=== PATIENT | male | born 1965 | race Caucasian/White ===

== ENCOUNTER 2018-04-24 13:16 | Inpatient (IN) | payer OTHER ==
[2018-04-24 14:52] LABS: Basophils % (Auto) 0.8 % (0.0-1.8); Eosinophils # (Auto) 0.1 K/mm3 (0.0-0.4); Eosinophils % (Auto) 1.3 % (0.0-4.3); Hematocrit 51.6 % (35.5-45.6); Hemoglobin 16.7 gm/dl (11.8-15.2); Lymphocytes # (Auto) 1.7 K/mm3 (1.2-5.4); Lymphocytes % (Auto) 27.4 % (13.4-35.0); Mean Corpuscular HGB Conc 32 % (32-34); Mean Corpuscular Hemoglobin 31 pg (28-32); Mean Corpuscular Volume 94 fl (84-94); Monocytes # (Auto) 0.6 K/mm3 (0.0-0.8); Monocytes % (Auto) 10.3 % (0.0-7.3); Platelet Count 208 K/mm3 (140-440); Red Blood Count 5.48 M/mm3 (3.65-5.03); Red Cell Distribution Width 14.8 % (13.2-15.2)
[2018-04-24 15:06] LABS: Bilirubin,Urine NEG (Negative); Blood,Urine NEG (Negative); Color,Urine Amber (Yellow); Hyaline Casts,Urine 1 /LPF; Mucus,Urine FEW /HPF; RBC,Urine < 1.0 /HPF (0.0-6.0)
[2018-04-24 15:10] LABS: Albumin 3.4 g/dL (3.9-5); Bilirubin,Direct 0.4 mg/dL (0-0.2)
[2018-04-24 15:12] LABS: Alanine Aminotransferase 24 units/L (7-56); Albumin 3.4 g/dL (3.9-5); BUN/Creatinine Ratio 11; Blood Urea Nitrogen 12 mg/dL (9-20); Hemolysis Index 4
[2018-04-24] MEDS ORDERED: LASIX IV ONE (15:49)
--- NOTE | 2018-04-24 16:01 | Emergency Department Report ---
ED General Adult HPI - General Chief complaint: Medical Clearance Stated complaint: EYES/FEET/STOMACH SWELLING Time Seen by Provider: 04/24/18 15:41 Source: patient Mode of arrival: Ambulatory Limitations: No Limitations - History of Present Illness Initial comments: Patient is a 53-year-old male who is presenting to the emergency department with leg and abdominal swelling or shortness of breath. Patient was seen at primary care physician's office and sent here today secondary to these complaints. Patient denies any chest pain abdominal pain nausea vomiting diarrhea at this time. Patient states that shortness of breath is worse with exertion. - Related Data Allergies Allergy/AdvReac Type Severity Reaction Status Date / Time No Known Allergies Allergy Unverified 04/24/18 14:13 ED Review of Systems ROS: Stated complaint: EYES/FEET/STOMACH SWELLING Other details as noted in HPI Comment: All other systems reviewed and negative ED Past Medical Hx - Social History Smoking Status: Never Smoker ED Physical Exam - General Limitations: No Limitations General appearance: alert, in no apparent distress - Head Head exam: Present: atraumatic, normocephalic - Eye Eye exam: Present: normal appearance - ENT ENT exam: Present: mucous membranes moist - Neck Neck exam: Present: normal inspection - Respiratory Respiratory exam: Present: rales. Absent: respiratory distress, wheezes, rhonchi, stridor - Cardiovascular Cardiovascular Exam: Present: regular rate, normal rhythm. Absent: systolic murmur, diastolic murmur, rubs, gallop - GI/Abdominal GI/Abdominal exam: Present: soft, distended (abdomen is firm and edematous), normal bowel sounds. Absent: tenderness, guarding, rebound - Rectal Rectal exam: Present: deferred - Extremities Exam Extremities exam: Present: normal inspection, pedal edema (patient has bilateral lower extremity edema is 2+ pitting) - Back Exam Back exam: Present: normal inspection - Neurological Exam Neurological exam: Present: alert, oriented X3 - Psychiatric Psychiatric exam: Present: normal affect, normal mood - Skin Skin exam: Present: warm, dry, intact, normal color. Absent: rash ED Course Vital Signs 04/24/18 14:07 Temperature 97.8 F Pulse Rate 71 Respiratory 16 Rate Blood Pressure 131/76 O2 Sat by Pulse 95 Oximetry ED Medical Decision Making - Lab Data Result diagrams: 04/24/18 14:38 06/30/18 14:38 Lab Results 04/24/18 04/24/18 04/24/18 Range/Units 13:05 14:38 14:38 WBC 6.0 (4.5-11.0) K/mm3 RBC 5.48 H (3.65-5.03) M/mm3 Hgb 16.7 H (11.8-15.2) gm/dl Hct 51.6 H (35.5-45.6) % MCV 94 (84-94) fl MCH 31 (28-32) pg MCHC 32 (32-34) % RDW 14.8 (13.2-15.2) % Plt Count 208 (140-440) K/mm3 Lymph % (Auto) 27.4 (13.4-35.0) % [place] % (Auto) 10.3 H (0.0-7.3) % Eos % (Auto) 1.3 (0.0-4.3) % Baso % (Auto) 0.8 (0.0-1.8) % Lymph # 1.7 (1.2-5.4) K/mm3 [place] # 0.6 (0.0-0.8) K/mm3 Eos # 0.1 (0.0-0.4) K/mm3 Baso # 0.0 (0.0-0.1) K/mm3 Seg Neutrophils % 60.2 (40.0-70.0) % Seg Neutrophils # 3.6 (1.8-7.7) K/mm3 Sodium 142 (137-145) mmol/L Potassium 4.2 (3.6-5.0) mmol/L Chloride 101.1 (98-107) mmol/L Carbon Dioxide 31 H (22-30) mmol/L Anion Gap 14 mmol/L BUN 12 (9-20) mg/dL Creatinine 1.1 (0.8-1.5) mg/dL Estimated GFR > 60 ml/min BUN/Creatinine Ratio 11 % Glucose 111 H (75-100) mg/dL Calcium 9.0 (8.4-10.2) mg/dL Total Bilirubin 1.10 (0.1-1.2) mg/dL Direct Bilirubin (0-0.2) mg/dL Indirect Bilirubin mg/dL AST 31 (5-40) units/L ALT 24 (7-56) units/L Alkaline Phosphatase 81 (35-129) units/L Total Protein 7.1 (6.3-8.2) g/dL Albumin 3.4 L (3.9-5) g/dL Albumin/Globulin Ratio 0.9 % Lipase (13-60) units/L Urine Color [place] (Yellow) Urine Turbidity Clear (Clear) Urine pH 5.0 (5.0-7.0) Ur Specific [place] 1.019 (1.003-1.030) Urine Protein 100 mg/dl (Negative) mg/dL Urine Glucose (UA) Neg (Negative) mg/dL Urine Ketones Neg (Negative) mg/dL Urine Blood Neg (Negative) Urine Nitrite Neg (Negative) Urine Bilirubin Neg (Negative) Urine Urobilinogen 4.0 (<2.0) mg/dL Ur Leukocyte Esterase Neg (Negative) Urine WBC (Auto) 2.0 (0.0-6.0) /HPF Urine RBC (Auto) < 1.0 (0.0-6.0) /HPF Hyaline Casts 1 /LPF Urine Mucus Few /HPF 04/24/18 Range/Units 14:38 WBC (4.5-11.0) K/mm3 RBC (3.65-5.03) M/mm3 Hgb (11.8-15.2) gm/dl Hct (35.5-45.6) % MCV (84-94) fl MCH (28-32) pg MCHC (32-34) % RDW (13.2-15.2) % Plt Count (140-440) K/mm3 Lymph % (Auto) (13.4-35.0) % [place] % (Auto) (0.0-7.3) % Eos % (Auto) (0.0-4.3) % Baso % (Auto) (0.0-1.8) % Lymph # (1.2-5.4) K/mm3 [place] # (0.0-0.8) K/mm3 Eos # (0.0-0.4) K/mm3 Baso # (0.0-0.1) K/mm3 Seg Neutrophils % (40.0-70.0) % Seg Neutrophils # (1.8-7.7) K/mm3 Sodium (137-145) mmol/L Potassium (3.6-5.0) mmol/L Chloride (98-107) mmol/L Carbon Dioxide (22-30) mmol/L Anion Gap mmol/L BUN (9-20) mg/dL Creatinine (0.8-1.5) mg/dL Estimated GFR ml/min BUN/Creatinine Ratio % Glucose (75-100) mg/dL Calcium (8.4-10.2) mg/dL Total Bilirubin 1.00 (0.1-1.2) mg/dL Direct Bilirubin 0.4 H (0-0.2) mg/dL Indirect Bilirubin 0.6 mg/dL AST 27 (5-40) units/L ALT 26 (7-56) units/L Alkaline Phosphatase 80 (35-129) units/L Total Protein 6.8 (6.3-8.2) g/dL Albumin 3.4 L (3.9-5) g/dL Albumin/Globulin Ratio 1.0 % Lipase 44 (13-60) units/L Urine Color (Yellow) Urine Turbidity (Clear) Urine pH (5.0-7.0) Ur Specific [place] (1.003-1.030) Urine Protein (Negative) mg/dL Urine Glucose (UA) (Negative) mg/dL Urine Ketones (Negative) mg/dL Urine Blood (Negative) Urine Nitrite (Negative) Urine Bilirubin (Negative) Urine Urobilinogen (<2.0) mg/dL Ur Leukocyte Esterase (Negative) Urine WBC (Auto) (0.0-6.0) /HPF Urine RBC (Auto) (0.0-6.0) /HPF Hyaline Casts /LPF Urine Mucus /HPF - Medical Decision Making Patient is a 53-year-old male who is complaining of shortness of breath leg swelling abdominal distention. Patient has a large amount of protein his urine suggestive of a nephrotic syndrome. Nephrology has been counseled and patient will be admitted to the hospitalist service under Dr. March. Critical Care Time: Yes Critical care time in (mins) excluding proc time.: 30 Critical care attestation.: If time is entered above; I have spent that time in minutes in the direct care of this critically ill patient, excluding procedure time. ED Disposition Clinical Impression: Anasarca, Nephrotic syndrome, Pulmonary edema Disposition: OP ADMIT IP TO THIS HOSP Is pt being admited?: Yes Does the pt Need Aspirin: No Condition: Stable Instructions: Pulmonary Edema (ED) Referrals: PRIMARY CARE, [Primary Care Provider] - 3-5 Days
[2018-04-24 16:52] LABS: INR 1.07 (0.87-1.13)
[2018-04-24 16:53] LABS: Partial Thromboplastin Time 29.8 Sec. (24.2-36.6)
[2018-04-24] MEDS ORDERED: ZOFRAN IV PRN (17:23)
[2018-04-24] MEDS ORDERED: SODIUM CHLORIDE FLUSH SYRINGE 10 ML IV PRN (17:23)
--- NOTE | 2018-04-24 17:23 | History and Physical Report ---
History of Present Illness Chief complaint: I'm swollen History of present illness: 53 YO Male with Obesity presents to ED for evaluation. Pt states that he has experienced worsening swelling to his legs, face, trunk, and abdomen over the past 3 weeks, with worsening symptoms over the past 1 week. Pt acknowledges nocturia, as well as foamy urine. Pt denies fever, chills, CP, Palpitations, NVD , Syncope, BRBPR, skin rash, productive cough, or recent ill contacts. Pt seen and evaluated in ED and found to have evidence of Nephrotic Syndrome, as well as Diastolic CHF. Pt admitted to medical floor. Nephrology consulted in ED Past History Past Medical History: other (Obesity) Past Surgical History: No surgical history, Other (reviewed) Social history: , lives with family. denies: smoking, alcohol abuse, prescription drug abuse Family history: no significant family history (reviewed) Medications and Allergies Allergies Allergy/AdvReac Type Severity Reaction Status Date / Time No Known Allergies Allergy Unverified 04/24/18 14:13 Review of Systems Constitutional: no weight loss, no weight gain, no fever, no chills Ears, nose, mouth and throat: no ear pain, no ear discharge, no tinnitis, no decreased hearing, no nose pain, no nasal congestion Cardiovascular: edema, shortness of breath, no chest pain, no orthopnea, no palpitations, no rapid/irregular heart beat Respiratory: no cough, no cough with sputum, no excessive sputum, no hemoptysis Gastrointestinal: no nausea, no vomiting, no diarrhea, no constipation, no change in bowel habits Genitourinary Male: nocturia, no hematuria, no flank pain, no discharge, no urinary frequency, no urinary hesitancy Rectal: no pain, no incontinence, no bleeding Musculoskeletal: no neck stiffness, no neck pain, no shooting arm pain, no arm numbness/tingling, no low back pain, no shooting leg pain, no leg numbness/ tingling Integumentary: no rash, no pruritis, no redness, no sores, no wounds, no jaundice Neurological: no head injury, no transient paralysis, no paralysis, no weakness , no parathesias, no numbness, no tingling, no seizures, no syncope Psychiatric: no anxiety, no memory loss, no change in sleep habits, no sleep disturbances, no insomnia, no hypersomnia, no change in appetite Endocrine: no cold intolerance, no heat intolerance, no polyphagia, no excessive thirst, no polyuria, no nocturia, no excessive sweating Hematologic/Lymphatic: no easy bruising, no easy bleeding, no lymphadenopathy, no lymphedema Allergic/Immunologic: no urticaria, no allergic rhinitis, no wheezing, no persistent infections, no anaphylaxis, no angioedema Exam - Constitutional Vitals: Temp Pulse Resp BP Pulse Ox 97.8 F 71 16 131/76 95 04/24/18 14:07 04/24/18 14:07 04/24/18 16:24 04/24/18 14:07 04/24/18 14:07 General appearance: Present: mild distress, obese - EENT Eyes: Present: PERRL ENT: hearing intact, clear oral mucosa - Neck Neck: Present: supple, normal ROM - Respiratory Respiratory effort: normal Respiratory: bilateral: CTA - Cardiovascular Heart Sounds: Present: S1 & S2. Absent: rub, click - Extremities Extremities: pulses symmetrical, No edema Extremity abnormal: edema (Generalized edema) Peripheral Pulses: within normal limits - Abdominal General gastrointestinal: Present: soft, non-tender, non-distended, normal bowel sounds Male genitourinary: Present: normal - Integumentary Integumentary: Present: clear, warm, dry - Musculoskeletal Musculoskeletal: gait normal, strength equal bilaterally - Psychiatric Psychiatric: appropriate mood/affect, intact judgment & insight - Neurologic Neurologic: CNII-XII intact, moves all extremities Results - Labs CBC & Chem 7: 04/24/18 14:38 04/24/18 14:38 Labs: Abnormal lab results 04/24/18 04/24/18 04/24/18 Range/Units 14:38 14:38 14:38 RBC 5.48 H (3.65-5.03) M/mm3 Hgb 16.7 H (11.8-15.2) gm/dl Hct 51.6 H (35.5-45.6) % [place] % (Auto) 10.3 H (0.0-7.3) % Carbon Dioxide 31 H (22-30) mmol/L Glucose 111 H (75-100) mg/dL Direct Bilirubin 0.4 H (0-0.2) mg/dL NT-Pro-B Natriuret Pep (0-900) pg/mL Albumin 3.4 L 3.4 L (3.9-5) g/dL 04/24/18 Range/Units 15:44 RBC (3.65-5.03) M/mm3 Hgb (11.8-15.2) gm/dl Hct (35.5-45.6) % [place] % (Auto) (0.0-7.3) % Carbon Dioxide (22-30) mmol/L Glucose (75-100) mg/dL Direct Bilirubin (0-0.2) mg/dL NT-Pro-B Natriuret Pep 1235 H (0-900) pg/mL Albumin (3.9-5) g/dL Assessment and Plan - Patient Problems (1) Nephrotic syndrome Current Visit: Yes Status: Acute Plan to address problem: Urinalysis, CBC, CMP, diuresis, Hepatitis Panel, renal ultrasound, urine protein , complement, Nephrology consulted in ED (2) Diastolic heart failure Current Visit: Yes Status: Acute Qualifiers: Heart failure chronicity: acute Qualified Code(s): I50.31 - Acute diastolic (congestive) heart failure Plan to address problem: Strict I/O, monitor uop q shift, daily weight, Echo, diuresis (3) DVT prophylaxis Current Visit: Yes Status: Acute Plan to address problem: scd to ble while in bed.
--- NOTE | 2018-04-24 17:25 | XRay Report ---
FINAL REPORT PROCEDURE: XR CHEST ROUTINE 2V TECHNIQUE: PA and lateral chest radiographs were obtained. CPT 57212 HISTORY: dyspnea with exertion COMPARISON: No prior studies are available for comparison. FINDINGS: Heart: Prominent cardiac silhouette. Mediastinum/Vessels: Prominent central vessels. Lungs/Pleural space: Bilateral perihilar reticular markings. Bony thorax: No acute osseous abnormality. Other: IMPRESSION: Findings suggest mild congestive heart failure.
[2018-04-24 18:24] LABS: Hepatitis A Antibody IgM Non-Reactive (NonReactive); Hepatitis B Core IgM Non-Reactive (NonReactive); Hepatitis B Surface Antigen Non-Reactive (Negative); Hepatitis C Virus Antibody Non-Reactive (NonReactive)
--- NOTE | 2018-04-24 19:51 | Ultrasound Report ---
FINAL REPORT PROCEDURE: Renal ultrasound. TECHNIQUE: Real-time sonography in multiple planes of the kidneys, ureters and urinary bladder was performed with image documentation. CPT 39343 HISTORY: Nephrotic syndrome. COMPARISON: No prior studies are available for comparison. FINDINGS: The right kidney measures 10.8 centimeters x 5.3 centimeters x 4.7 centimeters. The left kidney measures 12.8 centimeters x 6.7 centimeters x 5.5 centimeters. The echogenicity of the renal parenchyma appears normal. There is no hydronephrosis. There is a echogenic focus in the left kidney measuring approximately 9.5 millimeters. This could represent a nonobstructing calculus. IMPRESSION: No evidence of renal obstruction. Possible left renal calculus.
[2018-04-24] MEDS ORDERED: CARDIZEM IV ONE (20:25)
[2018-04-24 21:01] LABS: Creatine Kinase MB 2.1 ng/mL (0.0-4.0)
--- NOTE | 2018-04-24 21:38 | Cat Scan Report ---
FINAL REPORT PROCEDURE: CT angiogram chest with contrast. TECHNIQUE: Computerized tomographic angiography of the chest was performed after the IV injection of iodinated nonionic contrast including image processing. The image data was postprocessed using 2-dimensional multiplanar reformatted (MPR) and 3-dimensional (MIP and/or volume rendered) techniques. HISTORY: Tachycardia, dyspnea. COMPARISON: No prior studies are available for comparison. FINDINGS: The trachea and central bronchi appear normal. There is some compressive atelectasis in the right lower lobe. The lungs are otherwise clear and well expanded. There is a large right pleural effusion. The thoracic aorta has a normal caliber without evidence of dissection. The pulmonary arteries enhance normally. There are no filling defects to indicate pulmonary embolism. There is no mediastinal adenopathy. The heart size is mildly enlarged. The adrenal glands are normal in size. The thoracic skeleton appears intact. IMPRESSION: Large right pleural effusion. No evidence of pulmonary embolism. Mild cardiomegaly.
[2018-04-24] MEDS: LOPRESSOR PO SCH (22:41)
[2018-04-24] MEDS: SODIUM CHLORIDE FLUSH SYRINGE 10 ML IV SCH (22:42)
[2018-04-25] MEDS ORDERED: CARDIZEM IV ONE (02:04)
[2018-04-25] MEDS: LASIX IV SCH ×2 (05:57→18:52)
[2018-04-25 06:53] LABS: BUN/Creatinine Ratio 12; Blood Urea Nitrogen 11 mg/dL (9-20); Calcium 9.1 mg/dL (8.4-10.2); Hemolysis Index 8
[2018-04-25] MEDS: TYLENOL PO PRN (07:32)
[2018-04-25] MEDS: SODIUM CHLORIDE FLUSH SYRINGE 10 ML IV SCH ×2 (09:31→22:47)
[2018-04-25] MEDS: LOPRESSOR PO SCH ×2 (09:32→22:45)
--- NOTE | 2018-04-25 10:39 | Consultation ---
History of Present Illness - Reason for Consult Consult date: 04/25/18 proteinuria, other (anasarca) - History of Present Illness The patient is a 53 YO male with history significant for Morbid Obesity who presented to ED for evaluation of shortness of breath. History was obtained through the [facility] manager. Per patient dequan symptoms started about 3 weeks ago and it was progressively worse. He also reports having swelling to his legs, face, trunk and abdomen. Pt denies dysuria, hematuria, pyuria, fever , chills, CP, N, V, D, Syncope, rash, cough, recent ill contacts or NSAID intake. Echo showed Diastolic CHF. Pt was also suspected of Nephrotic Syndrome. His symtpoms have completely resolved with IV Lasix. Past History Past Medical History: other (Obesity) Past Surgical History: No surgical history, Other (reviewed) Social history: , lives with family. denies: smoking, alcohol abuse, prescription drug abuse Family history: no significant family history (reviewed) Medications and Allergies Allergies Allergy/AdvReac Type Severity Reaction Status Date / Time No Known Allergies Allergy Unverified 04/24/18 14:13 Active Meds: Active Medications Acetaminophen (Tylenol) 650 mg PO Q4H PRN PRN Reason: Pain MILD(1-3)/Fever >100.5/COLLAZO Last Admin: 04/25/18 07:32 Dose: 650 mg Furosemide (Lasix) 20 mg IV 0600,1800 [facility] Last Admin: 04/25/18 05:57 Dose: 20 mg Metoprolol Tartrate (Lopressor) 25 mg PO BID [facility] Last Admin: 04/25/18 09:32 Dose: 25 mg Ondansetron HCl (Zofran) 4 mg IV Q8H PRN PRN Reason: Nausea And Vomiting Sodium Chloride (Sodium Chloride Flush Syringe 10 Ml) 10 ml IV BID [facility] Last Admin: 04/25/18 09:31 Dose: 10 ml Sodium Chloride (Sodium Chloride Flush Syringe 10 Ml) 10 ml IV PRN PRN PRN Reason: LINE FLUSH Review of Systems Constitutional: no weight loss, no weight gain, no fever, no chills, no anorexia Cardiovascular: orthopnea, edema, shortness of breath, dyspnea on exertion, leg edema, decreased exercise tolerance, no chest pain, no palpitations, no syncope , no lightheadedness, no high blood pressure Respiratory: shortness of breath, dyspnea on exertion, no cough, no hemoptysis, no home oxygen Gastrointestinal: no abdominal pain, no nausea, no vomiting, no diarrhea, no melena, no jaundice Genitourinary Male: no dysuria, no hematuria Rectal: no bleeding Integumentary: no rash, no sores, no wounds, no jaundice Neurological: no change in speech, no change in mentation, no confusion Exam - Vital Signs Vital signs: Vital Signs Temp Pulse Resp BP Pulse Ox 97.8 F 71 16 131/76 95 04/24/18 14:07 04/24/18 14:07 04/24/18 14:07 04/24/18 14:07 04/24/18 14:07 - General Appearance General appearance: well-developed, well-nourished, appears stated age, obese, other (no distress) EENT: ATNC, PERRL, mucous membranes moist, hearing intact, other (no facial edema) Neck: Present: neck supple, trachea midline Respiratory: Clear to Ascultation Heart: regular, S1S2, no murmurs Gastrointestinal: Present: normoactive bowel sounds, obese. Absent: tenderness Integumentary: no rash, warm and dry Neurologic: no focal deficit, no asterixis, alert and oriented x3 Musculoskeletal: Present: other (no edema) Psychiatric: cooperative Results - Lab Results 04/24/18 14:38 04/25/18 05:22 Most recent lab results Calcium 9.1 mg/dL (8.4-10.2) 04/25/18 05:22 Phosphorus 5.00 mg/dL (2.5-4.5) H 04/25/18 05:22 Magnesium 1.70 mg/dL (1.7-2.3) 04/25/18 05:22 Assessment and Plan 1. Proteinuria: Minimal proteinuria. Antibodies are pending. 2. Anasarca: Likely secondary to Diastolic CHF. Improved with Lasix. 3. Non-obstructive left renal calculi.
--- NOTE | 2018-04-25 12:22 | Progress Note ---
Assessment and Plan 53 YO Male with Obesity presents to ED complaining of worsening swelling of his legs, face, trunk, and abdomen over the past 3 weeks, with worsening symptoms over the past 1 week. Pt acknowledges nocturia, as well as foamy urine. Pt denies fever, chills, CP, Palpitations, NVD, Syncope, BRBPR, skin rash, productive cough, or recent ill contacts. Pt seen and evaluated in ED and found to have evidence of Nephrotic Syndrome, as well as Diastolic CHF. Pt admitted to medical floor. Nephrology consulted in ED - Nephrotic syndrome Urinalysis, CBC, CMP, diuresis, Hepatitis Panel, renal ultrasound, urine protein , complement, Nephrology consulted in ED - Gross proteinuria Secondary to nephrotic syndrome - Left renal calculi with no obstruction - Diastolic heart failure Strict I/O, monitor uop q shift, daily weight, Diuresis, beta mohit, Echo done. Report pending. - Shortness of breath CT scan of the chest was unremarkable for any acute pulmonary embolism. However large right pleural effusion was identified Suggested pulmonary congestion. No pleural effusion identified - DVT prophylaxis scd to ble while in bed. Subjective Date of service: 04/25/18 Principal diagnosis: Nephrotic syndrome, right pleural effusion Interval history: Patient seen and examined. Having shortness of breath. Denies any fever. No pedal edema. No hematuria. Reviewed laboratory and radiological data. Objective - Exam Narrative Exam: Constitutional: Well-nourished well-developed. Morbidly obese. Head: Normocephalic atraumatic Eyes: Pupils are equal round and reactive to light Nose: No enlarged turbinates, no septal deviation. Mouth: Moist mucous membranes. Neck: Supple no thyromegaly. No bruit. No JVD Heart: Regular rate and rhythm, S1-S2 abnormal. No rubs murmurs or gallop Lungs: Decreased breath sounds bilaterally no rales or rhonchi Abdomen: Soft, nontender. Bowel sound are present. Extremities: No edema no cyanosis and no clubbing. Neuro: Alert oriented Oriented x3. No focal sensory or motor deficit. Skin: No rashes no hyperemic spots Psychiatry: Euthymic. Calm. - Constitutional Vitals: Vital Signs - 12hr 04/25/18 04/25/18 04/25/18 02:17 02:36 02:40 Temperature Pulse Rate 160 H 160 H 140 H Respiratory 20 Rate Blood Pressure Blood Pressure 118/80 106/61 103/74 [Right] O2 Sat by Pulse 95 Oximetry 04/25/18 04/25/18 04/25/18 02:41 05:57 09:32 Temperature 98.3 F Pulse Rate 162 H 69 159 H Respiratory 22 Rate Blood Pressure 106/61 113/83 113/83 Blood Pressure [Right] O2 Sat by Pulse 94 Oximetry 04/25/18 10:00 Temperature Pulse Rate Respiratory Rate Blood Pressure Blood Pressure [Right] O2 Sat by Pulse 95 Oximetry - Labs CBC & Chem 7: 04/24/18 14:38 04/25/18 05:22 Labs: Abnormal lab results 04/24/18 04/24/18 04/24/18 Range/Units 14:38 14:38 14:38 RBC 5.48 H (3.65-5.03) M/mm3 Hgb 16.7 H (11.8-15.2) gm/dl Hct 51.6 H (35.5-45.6) % [place] % (Auto) 10.3 H (0.0-7.3) % D-Dimer (0-234) ng/mlDDU Chloride (98-107) mmol/L Carbon Dioxide 31 H (22-30) mmol/L Glucose 111 H (75-100) mg/dL Phosphorus (2.5-4.5) mg/dL Direct Bilirubin 0.4 H (0-0.2) mg/dL NT-Pro-B Natriuret Pep (0-900) pg/mL Albumin 3.4 L 3.4 L (3.9-5) g/dL 04/24/18 04/24/18 04/25/18 Range/Units 15:44 17:39 05:22 RBC (3.65-5.03) M/mm3 Hgb (11.8-15.2) gm/dl Hct (35.5-45.6) % [place] % (Auto) (0.0-7.3) % D-Dimer 651.6 H (0-234) ng/mlDDU Chloride 97.0 L (98-107) mmol/L Carbon Dioxide 31 H (22-30) mmol/L Glucose 101 H (75-100) mg/dL Phosphorus 5.00 H (2.5-4.5) mg/dL Direct Bilirubin (0-0.2) mg/dL NT-Pro-B Natriuret Pep 1235 H (0-900) pg/mL Albumin (3.9-5) g/dL
[2018-04-25 12:58] LABS: Creatinine,Urine 119.9 mg/dL (0.1-20.0); Protein/Creatinine Ratio,Urine 0.14
[2018-04-25] MEDS ORDERED: CARDIZEM IV STA (20:41)
[2018-04-25] MEDS: CARDIZEM PO SCH (22:46)
[2018-04-26] MEDS: CARDIZEM PO SCH ×3 (05:34→22:33)
--- NOTE | 2018-04-26 07:20 | Progress Note ---
Assessment and Plan 1. Proteinuria: Minimal proteinuria. Antibodies are pending. 2. Anasarca: Likely secondary to Diastolic CHF. Improved with Lasix. 3. Non-obstructive left renal calculi. Will sign off. Patient to follow with me in 1-2 weeks. His niece helped in translating. All questions answered. Subjective Date of service: 04/26/18 Principal diagnosis: Nephrotic syndrome, right pleural effusion Interval history: Patient is feeling better. Objective - Vital Signs Vital signs: Vital Signs - 12hr 04/25/18 04/25/18 04/25/18 20:11 20:57 21:03 Temperature 98.6 F Pulse Rate 169 H 77 Respiratory 22 Rate Blood Pressure 115/82 106/68 O2 Sat by Pulse 95 92 Oximetry 04/25/18 04/25/18 04/25/18 21:29 22:00 22:45 Temperature 98.2 F Pulse Rate 112 H Respiratory 22 Rate Blood Pressure 111/85 111/85 O2 Sat by Pulse 94 Oximetry 04/25/18 04/26/18 04/26/18 22:46 00:23 00:24 Temperature 98.9 F Pulse Rate 112 H 73 89 Respiratory 18 Rate Blood Pressure 111/85 129/89 O2 Sat by Pulse 87 92 Oximetry 04/26/18 04/26/18 04:18 05:34 Temperature 98.5 F Pulse Rate 60 140 H Respiratory 18 Rate Blood Pressure 128/84 128/84 O2 Sat by Pulse 89 Oximetry - General Appearance General appearance: well-developed, well-nourished, appears stated age, obese, other (no distress) EENT: ATNC, PERRL, mucous membranes moist Neck: supple Respiratory: Present: Clear to Ascultation Cardiology: regular, S1S2, no murmurs Gastrointestinal: normoactive bowel sounds Integumentary: no rash, warm and dry Neurologic: no focal deficit, no asterixis Musculoskeletal: other (no edema) Psychiatric: cooperative - Lab 04/26/18 07:09 04/26/18 07:09 Most recent lab results Calcium 9.1 mg/dL (8.4-10.2) 04/25/18 05:22 Phosphorus 5.00 mg/dL (2.5-4.5) H 04/25/18 05:22 Magnesium 1.70 mg/dL (1.7-2.3) 04/25/18 05:22 Urine Creatinine 119.9 mg/dL (0.1-20.0) H 04/25/18 12:00 Urine Total Protein 17 mg/dL (5-11.8) H 04/25/18 12:00
[2018-04-26 07:46] LABS: Basophils % (Auto) 0.5 % (0.0-1.8); Eosinophils # (Auto) 0.3 K/mm3 (0.0-0.4); Eosinophils % (Auto) 4.9 % (0.0-4.3); Hematocrit 51.5 % (35.5-45.6); Hemoglobin 16.9 gm/dl (11.8-15.2); Lymphocytes # (Auto) 1.5 K/mm3 (1.2-5.4); Lymphocytes % (Auto) 24.4 % (13.4-35.0); Mean Corpuscular HGB Conc 33 % (32-34); Mean Corpuscular Hemoglobin 32 pg (28-32); Mean Corpuscular Volume 96 fl (84-94); Monocytes # (Auto) 0.6 K/mm3 (0.0-0.8); Monocytes % (Auto) 9.3 % (0.0-7.3); Platelet Count 193 K/mm3 (140-440); Red Blood Count 5.38 M/mm3 (3.65-5.03); Red Cell Distribution Width 15.2 % (13.2-15.2)
[2018-04-26 08:12] LABS: Alanine Aminotransferase 23 units/L (7-56); Albumin 3.3 g/dL (3.9-5); BUN/Creatinine Ratio 14; Blood Urea Nitrogen 13 mg/dL (9-20); Calcium 8.7 mg/dL (8.4-10.2); Hemolysis Index 83
[2018-04-26] MEDS: LOPRESSOR PO SCH ×2 (10:50→22:33)
[2018-04-26] MEDS: SODIUM CHLORIDE FLUSH SYRINGE 10 ML IV SCH ×2 (10:50→22:33)
[2018-04-26] MEDS: LASIX PO SCH (10:50)
--- NOTE | 2018-04-26 12:23 | Progress Note ---
Subjective Date of service: 04/26/18 Principal diagnosis: Nephrotic syndrome, right pleural effusion Objective - Constitutional Vitals: Vital Signs - 12hr 04/26/18 04/26/18 04/26/18 00:24 04:18 05:34 Temperature 98.5 F Pulse Rate 89 60 140 H Respiratory 18 Rate Blood Pressure 128/84 128/84 O2 Sat by Pulse 92 89 Oximetry 04/26/18 04/26/18 08:00 08:35 Temperature 97.6 F Pulse Rate 70 Respiratory 20 Rate Blood Pressure 131/92 O2 Sat by Pulse 92 Oximetry - Labs CBC & Chem 7: 04/26/18 07:09 04/26/18 07:09 Labs: Abnormal lab results 04/25/18 04/26/18 04/26/18 Range/Units 12:00 07:09 07:09 RBC 5.38 H (3.65-5.03) M/mm3 Hgb 16.9 H (11.8-15.2) gm/dl Hct 51.5 H (35.5-45.6) % MCV 96 H (84-94) fl [place] % (Auto) 9.3 H (0.0-7.3) % Eos % (Auto) 4.9 H (0.0-4.3) % Chloride 97.6 L (98-107) mmol/L Carbon Dioxide 36 H (22-30) mmol/L Glucose 127 H (75-100) mg/dL Albumin 3.3 L (3.9-5) g/dL Urine Creatinine 119.9 H (0.1-20.0) mg/dL Urine Total Protein 17 H (5-11.8) mg/dL
--- NOTE | 2018-04-26 17:10 | Progress Note ---
Assessment and Plan 53 YO Male with Obesity presents to ED complaining of worsening swelling of his legs, face, trunk, and abdomen over the past 3 weeks, with worsening symptoms over the past 1 week. Pt acknowledges nocturia, as well as foamy urine. Pt denies fever, chills, CP, Palpitations, NVD, Syncope, BRBPR, skin rash, productive cough, or recent ill contacts. Pt seen and evaluated in ED and found to have evidence of Nephrotic Syndrome, as well as Diastolic CHF. Pt admitted to medical floor. Nephrology consulted in ED - Nephrotic syndrome Urinalysis, CBC, CMP, diuresis, Hepatitis Panel, renal ultrasound, urine protein , complement, Nephrology consulted in ED - Gross proteinuria Secondary to nephrotic syndrome - Left renal calculi with no obstruction - Diastolic heart failure Strict I/O, monitor uop q shift, daily weight, Diuresis, beta mohit, Echo done. Report pending. consult SHS to read - Right pleural effusion per Ct but no ton CXR Will repeat CXR Obtain Pul consult - Shortness of breath CT scan of the chest was unremarkable for any acute pulmonary embolism. However large right pleural effusion was identified Suggested pulmonary congestion. No pleural effusion identified - DVT prophylaxis scd to ble while in bed. Subjective Date of service: 04/26/18 Principal diagnosis: Nephrotic syndrome, right pleural effusion Interval history: Patient seen and examined. Having shortness of breath. Denies any fever. No pedal edema. No hematuria. Reviewed laboratory and radiological data. Objective - Exam Narrative Exam: Constitutional: Well-nourished well-developed. Morbidly obese. Head: Normocephalic atraumatic Eyes: Pupils are equal round and reactive to light Nose: No enlarged turbinates, no septal deviation. Mouth: Moist mucous membranes. Neck: Supple no thyromegaly. No bruit. No JVD Heart: Regular rate and rhythm, S1-S2 abnormal. No rubs murmurs or gallop Lungs: Decreased breath sounds bilaterally. no rales or rhonchi Abdomen: Soft, nontender. Bowel sound are present. Extremities: No edema no cyanosis and no clubbing. Neuro: Alert oriented Oriented x3. No focal sensory or motor deficit. Skin: No rashes no hyperemic spots Psychiatry: Euthymic. Calm. - Constitutional Vitals: Vital Signs - 12hr 04/26/18 04/26/18 04/26/18 05:34 08:00 08:35 Temperature 97.6 F Pulse Rate 140 H 70 Respiratory 20 Rate Blood Pressure 128/84 131/92 O2 Sat by Pulse 92 Oximetry 04/26/18 10:00 Temperature Pulse Rate Respiratory Rate Blood Pressure O2 Sat by Pulse 97 Oximetry - Labs CBC & Chem 7: 04/26/18 07:09 04/26/18 07:09 Labs: Abnormal lab results 04/26/18 04/26/18 Range/Units 07:09 07:09 RBC 5.38 H (3.65-5.03) M/mm3 Hgb 16.9 H (11.8-15.2) gm/dl Hct 51.5 H (35.5-45.6) % MCV 96 H (84-94) fl [place] % (Auto) 9.3 H (0.0-7.3) % Eos % (Auto) 4.9 H (0.0-4.3) % Chloride 97.6 L (98-107) mmol/L Carbon Dioxide 36 H (22-30) mmol/L Glucose 127 H (75-100) mg/dL Albumin 3.3 L (3.9-5) g/dL
--- NOTE | 2018-04-26 18:58 | XRay Report ---
FINAL REPORT PROCEDURE: XR CHEST 1V AP TECHNIQUE: Chest radiograph anteroposterior view. HISTORY: Shortness of breath. COMPARISON: Chest radiograph dated 04/24/2018. Limited images from CTA of the chest dated 04/24/2018. FINDINGS: Heart: Normal. 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 Central vascular congestion. Lungs/Pleural space: Improved lung volumes. Mild perihilar and bibasilar opacities. Bony thorax: No acute osseous abnormality. Life support devices: None. 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 Central vascular congestion. Improved lung volumes. Mild perihilar and bibasilar opacities, consider bronchovascular crowding/atelectasis, also consider mild congestive heart failure or pneumonitis.
[2018-04-27] MEDS: CARDIZEM PO SCH (05:45)
[2018-04-27 07:30] LABS: Basophils % (Auto) 0.6 % (0.0-1.8); Eosinophils # (Auto) 0.3 K/mm3 (0.0-0.4); Eosinophils % (Auto) 5.6 % (0.0-4.3); Hematocrit 51.6 % (35.5-45.6); Hemoglobin 16.6 gm/dl (11.8-15.2); Lymphocytes # (Auto) 1.4 K/mm3 (1.2-5.4); Lymphocytes % (Auto) 24.3 % (13.4-35.0); Mean Corpuscular HGB Conc 32 % (32-34); Mean Corpuscular Hemoglobin 31 pg (28-32); Mean Corpuscular Volume 95 fl (84-94); Monocytes # (Auto) 0.6 K/mm3 (0.0-0.8); Platelet Count 196 K/mm3 (140-440); Red Blood Count 5.43 M/mm3 (3.65-5.03); Red Cell Distribution Width 14.6 % (13.2-15.2)
[2018-04-27 07:43] LABS: Alanine Aminotransferase 22 units/L (7-56); Albumin 3.5 g/dL (3.9-5); BUN/Creatinine Ratio 16; Blood Urea Nitrogen 13 mg/dL (9-20); Calcium 8.8 mg/dL (8.4-10.2); Hemolysis Index 25
[2018-04-27] MEDS: LOPRESSOR PO SCH ×3 (09:19→17:08)
[2018-04-27] MEDS: LASIX PO SCH (09:19)
[2018-04-27] MEDS: SODIUM CHLORIDE FLUSH SYRINGE 10 ML IV SCH (09:21)
--- NOTE | 2018-04-27 11:59 | Consultation ---
History of Present Illness Consult date: 04/27/18 Requesting physician: NANCIE GARZON Consult reason: congestive heart failure History of present illness: The pt is a 53 YO male with no known significant past medical history. The pt only speaks Romansh and the language line was used for interpretation during evaluation, although the patient is a very poor historian and most of the HPI was provided by the pt's niece via telephone. The pt has been experiencing SOB, eye swelling, BLE swelling and abdominal swelling for the past 3 weeks. He went to a PCP on Thursday and had some labwork done. He was told there may be something wrong with his kidneys and thus was referred to [facility] for further evaluation and management. Following arrival, pt was found to be in heart failure and also atrial fibrillation with RVR and thus cardiology has been consulted. On evaluation, pt denies any current complaints. He remains in atrial fibrillation with RVR, HR 150s - 160s. Echo done yesterday showed EF 35-40%, mild LVH, mod to severe dilatation of the LA, trace to mild MR and TR. Past History Past Medical History: No medical history Past Surgical History: No surgical history Social history: , lives with family. denies: smoking, alcohol abuse, prescription drug abuse Medications and Allergies Allergies Allergy/AdvReac Type Severity Reaction Status Date / Time No Known Allergies Allergy Unverified 04/24/18 14:13 Home Medications Medication Instructions Recorded Confirmed Last Taken Type No Known Home Medications [No 04/26/18 04/26/18 Unknown History Reported Home Medications] Active Meds: Active Medications Acetaminophen (Tylenol) 650 mg PO Q4H PRN PRN Reason: Pain MILD(1-3)/Fever >100.5/COLLAZO Last Admin: 04/25/18 07:32 Dose: 650 mg Diltiazem HCl (Cardizem) 30 mg PO Q8HR [facility] Last Admin: 04/27/18 05:45 Dose: 30 mg Furosemide (Lasix) 40 mg PO QDAY [facility] Last Admin: 04/27/18 09:19 Dose: 40 mg Metoprolol Tartrate (Lopressor) 25 mg PO BID [facility] Last Admin: 04/27/18 09:19 Dose: 25 mg Ondansetron HCl (Zofran) 4 mg IV Q8H PRN PRN Reason: Nausea And Vomiting Sodium Chloride (Sodium Chloride Flush Syringe 10 Ml) 10 ml IV BID TOMMY Last Admin: 04/27/18 09:21 Dose: 10 ml Sodium Chloride (Sodium Chloride Flush Syringe 10 Ml) 10 ml IV PRN PRN PRN Reason: LINE FLUSH Physical Examination Vital Signs Temp Pulse Resp BP Pulse Ox 97.8 F 71 16 131/76 95 04/24/18 14:07 04/24/18 14:07 04/24/18 14:07 04/24/18 14:07 04/24/18 14:07 Results 04/27/18 06:49 04/27/18 06:49 Cardiac Enzymes 04/27/18 Range/Units 06:49 AST 26 (5-40) units/L CBC 04/27/18 Range/Units 06:49 WBC 5.7 (4.5-11.0) K/mm3 RBC 5.43 H (3.65-5.03) M/mm3 Hgb 16.6 H (11.8-15.2) gm/dl Hct 51.6 H (35.5-45.6) % Plt Count 196 (140-440) K/mm3 Lymph # 1.4 (1.2-5.4) K/mm3 [place] # 0.6 (0.0-0.8) K/mm3 Eos # 0.3 (0.0-0.4) K/mm3 Baso # 0.0 (0.0-0.1) K/mm3 Comprehensive Metabolic Panel 04/27/18 Range/Units 06:49 Sodium 139 (137-145) mmol/L Potassium 4.0 (3.6-5.0) mmol/L Chloride 95.4 L (98-107) mmol/L Carbon Dioxide 36 H (22-30) mmol/L BUN 13 (9-20) mg/dL Creatinine 0.8 (0.8-1.5) mg/dL Glucose 110 H (75-100) mg/dL Calcium 8.8 (8.4-10.2) mg/dL AST 26 (5-40) units/L ALT 22 (7-56) units/L Alkaline Phosphatase 83 (35-129) units/L Total Protein 7.4 (6.3-8.2) g/dL Albumin 3.5 L (3.9-5) g/dL - Imaging and Cardiology Echo: report reviewed (EF 35-40%, mild LVH, mod to severe dilatation of the lA, trace to mild MR and TR.) EKG: report reviewed, image reviewed Assessment and Plan Optimize HR - d/c cardizem, increase lopressor, and initiate amio gtt. Pt currently with CHADS score of 1 and thus systemic AC in regards to atrial fibrillation is not indicated at this time. Increase lasix to 40mg IV BID. Pt with probable YOLIS. Consider further evaluation per primary. The patient has been seen in conjunction with Dr. Rosas who agrees with the assessment and plan of care. - Patient Problems (1) Heart failure with reduced ejection fraction Current Visit: Yes Status: Acute (2) Cardiomyopathy Current Visit: Yes Status: Chronic (3) Atrial fibrillation with RVR Current Visit: Yes Status: Acute (4) Proteinuria Current Visit: Yes Status: Acute (5) Obesity Current Visit: Yes Status: Chronic
[2018-04-27] MEDS ORDERED: CORDARONE 150 MG in D5W 97 ML IV ONE (12:04)
--- NOTE | 2018-04-27 13:34 | Consultation ---
History of Present Illness Consult date: 04/27/18 Requesting physician: NANCIE GARZON Reason for consult: pleural effusion History of present illness: PULMONARY/CCM CONSULT NOTE (Full dictation # [id number]) Please see dictated notes for full details Past History Past Medical History: No medical history Past Surgical History: No surgical history Social history: , lives with family. denies: smoking, alcohol abuse, prescription drug abuse Family history: no significant family history (reviewed) Medications and Allergies Allergies Allergy/AdvReac Type Severity Reaction Status Date / Time No Known Allergies Allergy Unverified 04/24/18 14:13 Home Medications Medication Instructions Recorded Confirmed Last Taken Type No Known Home Medications [No 04/26/18 04/26/18 Unknown History Reported Home Medications] Active Meds: Active Medications Acetaminophen (Tylenol) 650 mg PO Q4H PRN PRN Reason: Pain MILD(1-3)/Fever >100.5/COLLAZO Last Admin: 04/25/18 07:32 Dose: 650 mg Furosemide (Lasix) 40 mg IV 0600,1800 TOMMY Amiodarone HCl 900 mg/ (Dextrose) 500 mls @ 33.33 mls/hr IV DIRECT TOMMY; Protocol Metoprolol Tartrate (Lopressor) 25 mg PO Q6H TOMMY Ondansetron HCl (Zofran) 4 mg IV Q8H PRN PRN Reason: Nausea And Vomiting Sodium Chloride (Sodium Chloride Flush Syringe 10 Ml) 10 ml IV BID TOMMY Last Admin: 04/27/18 09:21 Dose: 10 ml Sodium Chloride (Sodium Chloride Flush Syringe 10 Ml) 10 ml IV PRN PRN PRN Reason: LINE FLUSH Physical Examination Vital signs: Vital Signs Temp Pulse Resp BP Pulse Ox 97.8 F 71 16 131/76 95 04/24/18 14:07 04/24/18 14:07 04/24/18 14:07 04/24/18 14:07 04/24/18 14:07 Results - Laboratory Findings CBC and BMP: 04/28/18 06:21 04/28/18 06:21 PT/INR, D-dimer PT 14.5 Sec. (12.2-14.9) 04/24/18 15:44 INR 1.07 (0.87-1.13) 04/24/18 15:44 D-Dimer 651.6 ng/mlDDU (0-234) H 04/24/18 17:39 Abnormal lab findings: Abnormal Labs 04/24/18 04/24/18 04/24/18 14:38 14:38 14:38 RBC 5.48 H Hgb 16.7 H Hct 51.6 H MCV [place] % (Auto) 10.3 H Eos % (Auto) D-Dimer Chloride Carbon Dioxide 31 H Glucose 111 H Phosphorus Direct Bilirubin 0.4 H NT-Pro-B Natriuret Pep Albumin 3.4 L 3.4 L Urine Creatinine Urine Total Protein 04/24/18 04/24/18 04/25/18 15:44 17:39 05:22 RBC Hgb Hct MCV [place] % (Auto) Eos % (Auto) D-Dimer 651.6 H Chloride 97.0 L Carbon Dioxide 31 H Glucose 101 H Phosphorus 5.00 H Direct Bilirubin NT-Pro-B Natriuret Pep 1235 H Albumin Urine Creatinine Urine Total Protein 04/25/18 04/26/18 04/26/18 12:00 07:09 07:09 RBC 5.38 H Hgb 16.9 H Hct 51.5 H MCV 96 H [place] % (Auto) 9.3 H Eos % (Auto) 4.9 H D-Dimer Chloride 97.6 L Carbon Dioxide 36 H Glucose 127 H Phosphorus Direct Bilirubin NT-Pro-B Natriuret Pep Albumin 3.3 L Urine Creatinine 119.9 H Urine Total Protein 17 H 04/27/18 04/27/18 06:49 06:49 RBC 5.43 H Hgb 16.6 H Hct 51.6 H MCV 95 H [place] % (Auto) 11.0 H Eos % (Auto) 5.6 H D-Dimer Chloride 95.4 L Carbon Dioxide 36 H Glucose 110 H Phosphorus Direct Bilirubin NT-Pro-B Natriuret Pep Albumin 3.5 L Urine Creatinine Urine Total Protein
[2018-04-27] MEDS: LASIX IV SCH (17:09)
--- NOTE | 2018-04-27 17:11 | Progress Note ---
Assessment and Plan Assessment and plan: 53 YO Male with Obesity presents to ED complaining of worsening swelling of his legs, face, trunk, and abdomen over the past 3 weeks, with worsening symptoms over the past 1 week. Pt acknowledges nocturia, as well as foamy urine. Pt denies fever, chills, CP, Palpitations, NVD, Syncope, BRBPR, skin rash, productive cough, or recent ill contacts. Pt seen and evaluated in ED and found to have evidence of Nephrotic Syndrome, as well as Diastolic CHF. Pt admitted to medical floor. Nephrology consulted in ED - Nephrotic syndrome Urinalysis, CBC, CMP, diuresis, Hepatitis Panel, renal ultrasound, urine protein, complement, Nephrology consulted in ED - Gross proteinuria Secondary to nephrotic syndrome - Left renal calculi with no obstruction - Diastolic heart failure Strict I/O, monitor uop q shift, daily weight, Diuresis, beta mohit, Echo done. Report pending. consult SHS to read - Right pleural effusion per Ct but no ton CXR Will repeat CXR Obtain Pul consult - Shortness of breath CT scan of the chest was unremarkable for any acute pulmonary embolism. However large right pleural effusion was identified Suggested pulmonary congestion. No pleural effusion identified - DVT prophylaxis scd to ble while in bed. History Interval history: Patient seen and examined medical records reviewed, communicated through a bilingual family member Feels slightly better no new complaints Complaints of mild shortness of breath denies chest pain Alert awake oriented Vital signs reviewed Hospitalist Physical - Constitutional Vitals: Temp Pulse Resp BP Pulse Ox 97.4 F L 67 20 120/63 93 04/27/18 08:00 04/27/18 08:00 04/27/18 08:00 04/27/18 08:00 04/27/18 08:00 General appearance: Present: no acute distress, obese (morbidly obese) - EENT Eyes: Present: PERRL, EOM intact - Neck Neck: Present: supple, normal ROM - Respiratory Respiratory effort: normal Respiratory: bilateral: diminished, rales, negative: rhonchi, wheezing - Cardiovascular Rhythm: regular Heart Sounds: Present: S1 & S2 - Extremities Extremities: no ischemia Extremity abnormal: edema - Abdominal General gastrointestinal: soft, non-tender, non-distended, normal bowel sounds - Integumentary Integumentary: Present: clear, warm - Psychiatric Psychiatric: appropriate mood/affect, cooperative - Neurologic Neurologic: CNII-XII intact, moves all extremities Results - Labs CBC & Chem 7: 04/27/18 06:49 04/27/18 06:49 Labs: Laboratory Last Values WBC 5.7 K/mm3 (4.5-11.0) 04/27/18 06:49 RBC 5.43 M/mm3 (3.65-5.03) H 04/27/18 06:49 Hgb 16.6 gm/dl (11.8-15.2) H 04/27/18 06:49 Hct 51.6 % (35.5-45.6) H 04/27/18 06:49 MCV 95 fl (84-94) H 04/27/18 06:49 MCH 31 pg (28-32) 04/27/18 06:49 MCHC 32 % (32-34) 04/27/18 06:49 RDW 14.6 % (13.2-15.2) 04/27/18 06:49 Plt Count 196 K/mm3 (140-440) 04/27/18 06:49 Lymph % (Auto) 24.3 % (13.4-35.0) 04/27/18 06:49 [place] % (Auto) 11.0 % (0.0-7.3) H 04/27/18 06:49 Eos % (Auto) 5.6 % (0.0-4.3) H 04/27/18 06:49 Baso % (Auto) 0.6 % (0.0-1.8) 04/27/18 06:49 Lymph # 1.4 K/mm3 (1.2-5.4) 04/27/18 06:49 [place] # 0.6 K/mm3 (0.0-0.8) 04/27/18 06:49 Eos # 0.3 K/mm3 (0.0-0.4) 04/27/18 06:49 Baso # 0.0 K/mm3 (0.0-0.1) 04/27/18 06:49 Seg Neutrophils % 58.5 % (40.0-70.0) 04/27/18 06:49 Seg Neutrophils # 3.3 K/mm3 (1.8-7.7) 04/27/18 06:49 PT 14.5 Sec. (12.2-14.9) 04/24/18 15:44 INR 1.07 (0.87-1.13) 04/24/18 15:44 APTT 29.8 Sec. (24.2-36.6) 04/24/18 15:44 D-Dimer 651.6 ng/mlDDU (0-234) H 04/24/18 17:39 Sodium 139 mmol/L (137-145) 04/27/18 06:49 Potassium 4.0 mmol/L (3.6-5.0) 04/27/18 06:49 Chloride 95.4 mmol/L (98-107) L 04/27/18 06:49 Carbon Dioxide 36 mmol/L (22-30) H 04/27/18 06:49 Anion Gap 12 mmol/L 04/27/18 06:49 BUN 13 mg/dL (9-20) 04/27/18 06:49 Creatinine 0.8 mg/dL (0.8-1.5) 04/27/18 06:49 Estimated GFR > 60 ml/min 04/27/18 06:49 BUN/Creatinine Ratio 16 % 04/27/18 06:49 Glucose 110 mg/dL (75-100) H 04/27/18 06:49 POC Glucose 83 (70-105) 04/24/18 20:29 Calcium 8.8 mg/dL (8.4-10.2) 04/27/18 06:49 Phosphorus 5.00 mg/dL (2.5-4.5) H 04/25/18 05:22 Magnesium 1.80 mg/dL (1.7-2.3) 04/26/18 07:09 Total Bilirubin 0.90 mg/dL (0.1-1.2) 04/27/18 06:49 Direct Bilirubin 0.4 mg/dL (0-0.2) H 04/24/18 14:38 Indirect Bilirubin 0.6 mg/dL 04/24/18 14:38 AST 26 units/L (5-40) 04/27/18 06:49 ALT 22 units/L (7-56) 04/27/18 06:49 Alkaline Phosphatase 83 units/L (35-129) 04/27/18 06:49 Total Creatine Kinase 88 units/L (55-170) 04/24/18 20:35 CK-MB (CK-2) 2.1 ng/mL (0.0-4.0) 04/24/18 20:35 CK-MB (CK-2) Rel Index 2.3 (0-4) 04/24/18 20:35 Troponin T < 0.010 ng/mL (0.00-0.029) 04/24/18 20:35 NT-Pro-B Natriuret Pep 1235 pg/mL (0-900) H 04/24/18 15:44 Total Protein 7.4 g/dL (6.3-8.2) 04/27/18 06:49 Albumin 3.5 g/dL (3.9-5) L 04/27/18 06:49 Albumin/Globulin Ratio 0.9 % 04/27/18 06:49 Lipase 44 units/L (13-60) 04/24/18 14:38 Urine Color [place] (Yellow) 04/24/18 13:05 Urine Turbidity Clear (Clear) 04/24/18 13:05 Urine pH 5.0 (5.0-7.0) 04/24/18 13:05 Ur Specific [place] 1.019 (1.003-1.030) 04/24/18 13:05 Urine Protein 100 mg/dl mg/dL (Negative) 04/24/18 13:05 Urine Glucose (UA) Neg mg/dL (Negative) 04/24/18 13:05 Urine Ketones Neg mg/dL (Negative) 04/24/18 13:05 Urine Blood Neg (Negative) 04/24/18 13:05 Urine Nitrite Neg (Negative) 04/24/18 13:05 Urine Bilirubin Neg (Negative) 04/24/18 13:05 Urine Urobilinogen 4.0 mg/dL (<2.0) 04/24/18 13:05 Ur Leukocyte Esterase Neg (Negative) 04/24/18 13:05 Urine WBC (Auto) 2.0 /HPF (0.0-6.0) 04/24/18 13:05 Urine RBC (Auto) < 1.0 /HPF (0.0-6.0) 04/24/18 13:05 Hyaline Casts 1 /LPF 04/24/18 13:05 Urine Mucus Few /HPF 04/24/18 13:05 Urine Total Volume 1500 04/25/18 11:00 Urine Creatinine 119.9 mg/dL (0.1-20.0) H 04/25/18 12:00 Ur Total Protein 24 Hr 165.00 (2-200) 04/25/18 11:00 Protein/Creatinin Ratio 0.14 04/25/18 12:00 Urine Total Protein 17 mg/dL (5-11.8) H 04/25/18 12:00 Hepatitis A IgM Ab Non-reactive (NonReactive) 04/24/18 17:39 Hep Bs Antigen Non-reactive (Negative) 04/24/18 17:39 Hep B Core IgM Ab Non-reactive (NonReactive) 04/24/18 17:39 Hepatitis C Antibody Non-reactive (NonReactive) 04/24/18 17:39
[2018-04-27] MEDS: CORDARONE 900 MG in D5W 482 ML IV SCH (17:30)
[2018-04-28] MEDS: SODIUM CHLORIDE FLUSH SYRINGE 10 ML IV SCH ×3 (00:05→22:01)
[2018-04-28] MEDS: LOPRESSOR PO SCH ×4 (00:05→18:38)
[2018-04-28] MEDS: LASIX IV SCH ×2 (06:35→18:19)
[2018-04-28 07:21] LABS: Alanine Aminotransferase 20 units/L (7-56); Albumin 3.4 g/dL (3.9-5); BUN/Creatinine Ratio 16; Blood Urea Nitrogen 14 mg/dL (9-20); Calcium 8.6 mg/dL (8.4-10.2); Hemolysis Index 21
[2018-04-28 07:36] LABS: Red Blood Count 5.37 M/mm3 (3.65-5.03)
[2018-04-28 07:37] LABS: Basophils % (Auto) 0.6 % (0.0-1.8); Eosinophils # (Auto) 0.3 K/mm3 (0.0-0.4); Eosinophils % (Auto) 4.6 % (0.0-4.3); Hematocrit 51.1 % (35.5-45.6); Hemoglobin 16.4 gm/dl (11.8-15.2); Lymphocytes # (Auto) 1.2 K/mm3 (1.2-5.4); Lymphocytes % (Auto) 22.2 % (13.4-35.0); Mean Corpuscular HGB Conc 32 % (32-34); Mean Corpuscular Hemoglobin 31 pg (28-32); Mean Corpuscular Volume 95 fl (84-94); Mean Platelet Volume 8.4 fl (6-12); Monocytes # (Auto) 0.6 K/mm3 (0.0-0.8); Monocytes % (Auto) 10.2 % (0.0-7.3); Platelet Count 181 K/mm3 (140-440)
--- NOTE | 2018-04-28 09:40 | Event Note ---
Date: 04/28/18 in no acute distress. resting quietly. no family present. vss tel afib vr 90's chest clear/diminished breath sounds cor irr irr abd soft obese nontender ext 1+ pretibial pitting edema IMP: hfref, afib Plan: present mgt
[2018-04-28] MEDS ORDERED: ZESTRIL PO SCH (10:00)
[2018-04-28] MEDS: TYLENOL PO PRN (11:19)
[2018-04-28] MEDS: CORDARONE PO SCH ×2 (12:13→22:00)
--- NOTE | 2018-04-28 13:37 | Progress Note ---
Assessment and Plan Acute hypoxemic respiratory failure, on supplemental oxygen. Acute congestive heart failure exacerbation/new onset congestive heart failure. A 2D echo reports an ejection fraction of 35-40%. Atrial Fibrillation with RVR Mild pulmonary hypertension. Morbid obesity. Likely sleep disordered breathing. Hyperphosphatemia - follow US chest +/- thoracentesis - continue diuresis - complete cardiology evaluation - supplemental oxygen to keep sats > 90% - continue GI & VTE prophylaxis - bronchodilators - continue other care per attending / other consultants .... 25' Subjective Date of service: 04/28/18 Principal diagnosis: Acute Hypoxemic Resp Failure; Acut CHF exacerbation; Right Pleural Effusion Interval history: Patient is seen today for: Acute Hypoxemic Resp Failure; Acut CHF exacerbation; Right Pleural Effusion Seen and examined at bedside; 24hour events reviewed; nursing and respiratory care staff consulted; no adverse overnight events reported to me; remains in A- fib with RVR; states still SOB; no N/V/F/C; awaiting thoracentesis Objective Vital Signs - 12hr 04/28/18 04/28/18 04/28/18 05:47 06:36 07:18 Temperature 98.9 F 97.9 F Pulse Rate 101 H 101 H 83 Respiratory 18 20 Rate Blood Pressure 120/81 150/86 Blood Pressure 120/81 [Right] O2 Sat by Pulse 95 89 Oximetry 04/28/18 04/28/18 04/28/18 08:26 09:04 11:04 Temperature 97.9 F 98.1 F Pulse Rate 93 H 85 Respiratory 20 20 Rate Blood Pressure 109/76 Blood Pressure 150/86 [Right] O2 Sat by Pulse 90 96 93 Oximetry 04/28/18 12:00 Temperature Pulse Rate 132 H Respiratory Rate Blood Pressure Blood Pressure [Right] O2 Sat by Pulse Oximetry Constitutional: appears uncomfortable, other (morbidly obese middle aged male in mild respiratory distress) Eyes: non-icteric ENT: oropharynx moist, other (mallampati 3) Neck: supple, no lymphadenopathy, no JVD, other (large neck circumference) Effort: mildly labored Ascultation: Bilateral: diminished breath sounds, rhonchi (base) Percussion: Bilateral: not dull Cardiovascular: irregular rhythm, other (No R/M) Gastrointestinal: normoactive bowel sounds, soft, non-tender, non-distended Integumentary: normal Extremities: no cyanosis, pink and warm, pulses normal, edema Neurologic: normal mental status, non-focal exam, pupils equal and round, motor strength normal and Psychiatric: mood appropriate, anxious CBC and BMP: 04/30/18 10:39 04/29/18 06:18 ABG, PT/INR, D-dimer: PT/INR, D-dimer PT 14.5 Sec. (12.2-14.9) 04/24/18 15:44 INR 1.07 (0.87-1.13) 04/24/18 15:44 D-Dimer 651.6 ng/mlDDU (0-234) H 04/24/18 17:39 Abnormal lab findings: Abnormal Labs 04/24/18 04/24/18 04/24/18 14:38 14:38 14:38 RBC 5.48 H Hgb 16.7 H Hct 51.6 H MCV [place] % (Auto) 10.3 H Eos % (Auto) D-Dimer Chloride Carbon Dioxide 31 H Glucose 111 H Phosphorus Direct Bilirubin 0.4 H NT-Pro-B Natriuret Pep Albumin 3.4 L 3.4 L Urine Creatinine Urine Total Protein 04/24/18 04/24/18 04/25/18 15:44 17:39 05:22 RBC Hgb Hct MCV [place] % (Auto) Eos % (Auto) D-Dimer 651.6 H Chloride 97.0 L Carbon Dioxide 31 H Glucose 101 H Phosphorus 5.00 H Direct Bilirubin NT-Pro-B Natriuret Pep 1235 H Albumin Urine Creatinine Urine Total Protein 04/25/18 04/26/18 04/26/18 12:00 07:09 07:09 RBC 5.38 H Hgb 16.9 H Hct 51.5 H MCV 96 H [place] % (Auto) 9.3 H Eos % (Auto) 4.9 H D-Dimer Chloride 97.6 L Carbon Dioxide 36 H Glucose 127 H Phosphorus Direct Bilirubin NT-Pro-B Natriuret Pep Albumin 3.3 L Urine Creatinine 119.9 H Urine Total Protein 17 H 04/27/18 04/27/18 04/28/18 06:49 06:49 06:21 RBC 5.43 H 5.37 H Hgb 16.6 H 16.4 H Hct 51.6 H 51.1 H MCV 95 H 95 H [place] % (Auto) 11.0 H 10.2 H Eos % (Auto) 5.6 H 4.6 H D-Dimer Chloride 95.4 L Carbon Dioxide 36 H Glucose 110 H Phosphorus Direct Bilirubin NT-Pro-B Natriuret Pep Albumin 3.5 L Urine Creatinine Urine Total Protein 04/28/18 06:21 RBC Hgb Hct MCV [place] % (Auto) Eos % (Auto) D-Dimer Chloride 95.3 L Carbon Dioxide 34 H Glucose 111 H Phosphorus Direct Bilirubin NT-Pro-B Natriuret Pep Albumin 3.4 L Urine Creatinine Urine Total Protein Chest x-ray: image reviewed (cardiomegaly and pulmonary edema) Allied health notes reviewed: nursing
--- NOTE | 2018-04-28 14:10 | Consultation ---
PULMONARY CONSULT NOTE CONSULTING PHYSICIAN: Teresa Calles MD REASON FOR CONSULTATION: Pleural effusion. CHIEF COMPLAINT AND HISTORY OF PRESENT ILLNESS: The patient is a 53-year-old male with a past medical history significant only for being obese according to him, who presented to the Emergency Room complaining of increasing shortness of breath and worsening leg swelling as well as generalized anasarca really. It had been going on in retrospect for about 3 weeks in the preceding couple of days, his symptoms were much worse. He did admit to orthopnea. He also admitted to polyuria including nocturia. In the Emergency Room, he was evaluated. The suspicion was for nephrotic syndrome and possible congestive heart failure. He was admitted to the medical floor. A CT scan of his chest reported right pleural effusion, I believe, hence the consult. When I stopped by to him, he was resting in bed. He was on supplemental oxygen about 3 liters nasal cannula. He denied any gross or streaky hemoptysis. He denied any tobacco use or abuse history. He admits to snoring and witnessed apneas. Denied fevers or chills. Denied any sick contacts. He denied any recent long distance travel. This really is as much of the history of presentation as I have. PAST MEDICAL HISTORY: Obesity. PAST SURGICAL HISTORY: Denied. MEDICATIONS: He was on at the time I stopped by to see him were reviewed, pertinent medications included the following: Amiodarone drip had been started at 1 mg per minute, Lasix 40 mg IV b.i.d., metoprolol 25 mg p.o. q.6h., p.r.n. Zofran 4 mg IV q. 8 hours p.r.n. nausea and vomiting. ALLERGIES: No known drug allergies. DIET: Morbidly obese. Denies acute weight loss or gain in preceding few weeks to months. FAMILY AND SOCIAL HISTORY: Lives in the community. His niece is in the room with him. He is . Denies alcohol, tobacco, or illicit drug use or abuse. Denies any other family history. REVIEW OF SYSTEMS: No loss of consciousness. No new onset seizures. No new onset focal weakness. Denies gross hematochezia or melena. Denies gross hematuria. He had some element of dysuria. He denied polydipsia. He did have some polyuria. He denied any new lumps, bumps, or swellings on his body. Denied any palpitations. Complete 13-system review of systems obtained. Pertinent positives and/or negatives as in body of history above, otherwise noncontributory. PHYSICAL EXAMINATION: VITAL SIGNS: At presentation, he was afebrile, temperature 98.4, pulse was as high as 135 in the ER, blood pressure 135/79, O2 sats 89, inspired oxygen concentration was not recorded at that time. GENERAL: Morbidly obese male. Normocephalic, atraumatic, talking to me in slightly interrupted sentences, in mild respiratory distress without the use of accessory respiratory muscles. HEAD, EYES, EARS, NOSE, AND THROAT: He is anicteric. No conjunctival erythema. Oropharynx is a Mallampati #4 oropharynx. No gross jugular venous distention, no thyromegaly. Grossly, no palpable lymph nodes in the supraclavicular or submandibular lymph node chains. LUNGS: Auscultation of both lung ortiz reveals distant breath sounds, bibasilar inspiratory rales. No wheezing. HEART: Heart sounds 1 and 2 are heard at the time of my evaluation, irregular rate and rhythm. No rubs or murmurs. ABDOMEN: Soft, full, protuberant, bowel sounds are positive. No palpable hepatosplenomegaly. EXTREMITIES: Without overt digital clubbing or cyanosis. He does have a 2+ bipedal pitting edema. Dorsalis pedis pulses are palpable bilaterally. NEUROLOGIC: Pupils are equal, round, reactive to light. Extraocular muscle movements are intact. Pupils are round 4 mm. He moves all 4 extremities spontaneously. SKIN: The skin is of normal turgor. No cellulitis, no rash. LABORATORY DATA: From my review are as follows: Admission white cell count 6000, hemoglobin 16.7, hematocrit 51.6, platelet count 208. No manual differential. D-dimer was slightly elevated at 652. Serum sodium 142, potassium 4.2, chloride 101, bicarbonate 31, BUN 12, creatinine 1.1, glucose was 111. Liver function tests essentially within normal limits. BNP elevated at 1235. Albumin was low at 3.4. Urinalysis was negative for nitrites and leukocyte esterase and essentially bland. Hepatitis screen was unremarkable. His hemoglobin remains at 16.6. No microbiology studies from my review. A CT angiogram of the chest was done. I have reviewed the images. I have also reviewed the radiologist's interpretation. The contrast phase timing is not the best. I will say no large filling defects consistent with central pulmonary emboli. I cannot comment much on the peripheral branches of the pulmonary artery. He does have a small to moderate right pleural effusion that is layering and appears to be freely flowing. No significant mediastinal adenopathy; however, he does have significant mediastinal lipomatosis. Chest x-ray with improved lung volume since admission, but still with increased interstitial markings, gross cardiomegaly. Overall consistent with a congestive heart failure. ASSESSMENT AND PLAN: 1. Acute hypoxemic respiratory failure, on supplemental oxygen. 2. Acute congestive heart failure exacerbation/new onset congestive heart failure. A 2D echo reports an ejection fraction of 35-40%. 3. Mild pulmonary hypertension. 4. Morbid obesity. 5. Likely sleep disordered breathing. 6. Hyperphosphatemia. PLAN: Agree with diuresis. Continue aggressive diuresis in the short time. I am not so sure we are dealing with a nephrotic syndrome. His 24-hour protein is 165. We will obviously defer to the manufacturing maintenance technician in terms of the diagnosis. Cardiology evaluation has been requested and is appropriate. I have told him he will need Sleep Clinic evaluation. We will continue to wean oxygen to keep sats greater than or equal to over 90%. Bilevel positive airway pressure ventilation therapy will be offered on a p.r.n. basis. He will be placed on GI prophylaxis and in particular DVT prophylaxis in this gentleman with possible nephrotic syndrome with his prothrombotic qualities. Flu and pneumonia vaccination will be addressed per protocol. Thank you very much for the consult. I should mention that we will treat him conservatively and see if there is no improvement in the pleural effusion. If not, then consideration will be given for thoracentesis. The patient is clinically stable at this time and I am not so sure that there is any indication for a diagnostic thoracentesis otherwise. JOB# [id number] KALLIE/EDNA ELKINS
[2018-04-28] MEDS: PEPCID PO SCH (18:19)
--- NOTE | 2018-04-28 21:23 | Progress Note ---
Assessment and Plan Assessment and plan: 53 YO Male with Obesity presents to ED complaining of worsening swelling of his legs, face, trunk, and abdomen over the past 3 weeks, with worsening symptoms over the past 1 week. Pt acknowledges nocturia, as well as foamy urine. Pt denies fever, chills, CP, Palpitations, NVD, Syncope, BRBPR, skin rash, productive cough, or recent ill contacts. Pt seen and evaluated in ED and found to have evidence of Nephrotic Syndrome, as well as Diastolic CHF. Pt admitted to medical floor. Nephrology consulted in ED --A. fib with rapid ventricular rate; no date controlled Amiodarone discontinued, continue oral amiodarone and Lopressor Cardiology following, no need for anticoagulation as chads 2 score is 1 --Acute systolic congestive heart failure; ejection fraction 35-40% Continue diuretics, input output monitoring, beta blockers and TERENCE inhibitor --Mild proteinuria/anasarca; Nephrology following, feels symptoms are secondary to congestive heart failure Advised outpatient workup upon discharge --Mild pleural effusion; pulmonary evaluation appreciated Symptoms probably secondary to congestive heart failure, recommend to continue diuresis --DVT prophylaxis; heparin --Morbid obesity; BMI 49.6, counseling weight reduction when medically stable Increase ambulation Possible discharge home tomorrow if stable History Interval history: Patient seen and examined medical records reviewed No new events reported by the nursing staff Feels slightly better, no new complaints amiodarone drip DC'd,On oral amiodarone Vital signs noted Hospitalist Physical - Constitutional Vitals: Temp Pulse Resp BP Pulse Ox 98.5 F 74 18 114/61 94 04/28/18 19:35 04/28/18 19:35 04/28/18 19:35 04/28/18 19:35 04/28/18 19:35 General appearance: Present: no acute distress, obese (morbidly obese) - EENT Eyes: Present: PERRL, EOM intact - Neck Neck: Present: supple, normal ROM - Respiratory Respiratory effort: normal Respiratory: bilateral: diminished, negative: rales, rhonchi, wheezing - Cardiovascular Rhythm: regular Heart Sounds: Present: S1 & S2 - Extremities Extremities: no ischemia Extremity abnormal: edema - Abdominal General gastrointestinal: soft, non-tender, non-distended, normal bowel sounds - Integumentary Integumentary: Present: clear, warm - Psychiatric Psychiatric: appropriate mood/affect, cooperative - Neurologic Neurologic: CNII-XII intact, moves all extremities Results - Labs CBC & Chem 7: 04/28/18 06:21 04/28/18 06:21 Labs: Laboratory Last Values WBC 5.6 K/mm3 (4.5-11.0) 04/28/18 06:21 RBC 5.37 M/mm3 (3.65-5.03) H 04/28/18 06:21 Hgb 16.4 gm/dl (11.8-15.2) H 04/28/18 06:21 Hct 51.1 % (35.5-45.6) H 04/28/18 06:21 MCV 95 fl (84-94) H 04/28/18 06:21 MCH 31 pg (28-32) 04/28/18 06:21 MCHC 32 % (32-34) 04/28/18 06:21 RDW 14.0 % (13.2-15.2) 04/28/18 06:21 Plt Count 181 K/mm3 (140-440) 04/28/18 06:21 Lymph % (Auto) 22.2 % (13.4-35.0) 04/28/18 06:21 [place] % (Auto) 10.2 % (0.0-7.3) H 04/28/18 06:21 Eos % (Auto) 4.6 % (0.0-4.3) H 04/28/18 06:21 Baso % (Auto) 0.6 % (0.0-1.8) 04/28/18 06:21 Lymph # 1.2 K/mm3 (1.2-5.4) 04/28/18 06:21 [place] # 0.6 K/mm3 (0.0-0.8) 04/28/18 06:21 Eos # 0.3 K/mm3 (0.0-0.4) 04/28/18 06:21 Baso # 0.0 K/mm3 (0.0-0.1) 04/28/18 06:21 Seg Neutrophils % 62.4 % (40.0-70.0) 04/28/18 06:21 Seg Neutrophils # 3.5 K/mm3 (1.8-7.7) 04/28/18 06:21 PT 14.5 Sec. (12.2-14.9) 04/24/18 15:44 INR 1.07 (0.87-1.13) 04/24/18 15:44 APTT 29.8 Sec. (24.2-36.6) 04/24/18 15:44 D-Dimer 651.6 ng/mlDDU (0-234) H 04/24/18 17:39 Sodium 142 mmol/L (137-145) 04/28/18 06:21 Potassium 4.0 mmol/L (3.6-5.0) 04/28/18 06:21 Chloride 95.3 mmol/L (98-107) L 04/28/18 06:21 Carbon Dioxide 34 mmol/L (22-30) H 04/28/18 06:21 Anion Gap 17 mmol/L 04/28/18 06:21 BUN 14 mg/dL (9-20) 04/28/18 06:21 Creatinine 0.9 mg/dL (0.8-1.5) 04/28/18 06:21 Estimated GFR > 60 ml/min 04/28/18 06:21 BUN/Creatinine Ratio 16 % 04/28/18 06:21 Glucose 111 mg/dL (75-100) H 04/28/18 06:21 POC Glucose 83 (70-105) 04/24/18 20:29 Calcium 8.6 mg/dL (8.4-10.2) 04/28/18 06:21 Phosphorus 5.00 mg/dL (2.5-4.5) H 04/25/18 05:22 Magnesium 1.80 mg/dL (1.7-2.3) 04/26/18 07:09 Total Bilirubin 1.00 mg/dL (0.1-1.2) 04/28/18 06:21 Direct Bilirubin 0.4 mg/dL (0-0.2) H 04/24/18 14:38 Indirect Bilirubin 0.6 mg/dL 04/24/18 14:38 AST 23 units/L (5-40) 04/28/18 06:21 ALT 20 units/L (7-56) 04/28/18 06:21 Alkaline Phosphatase 80 units/L (35-129) 04/28/18 06:21 Total Creatine Kinase 88 units/L (55-170) 04/24/18 20:35 CK-MB (CK-2) 2.1 ng/mL (0.0-4.0) 04/24/18 20:35 CK-MB (CK-2) Rel Index 2.3 (0-4) 04/24/18 20:35 Troponin T < 0.010 ng/mL (0.00-0.029) 04/24/18 20:35 NT-Pro-B Natriuret Pep 1235 pg/mL (0-900) H 04/24/18 15:44 Total Protein 7.3 g/dL (6.3-8.2) 04/28/18 06:21 Albumin 3.4 g/dL (3.9-5) L 04/28/18 06:21 Albumin/Globulin Ratio 0.9 % 04/28/18 06:21 Lipase 44 units/L (13-60) 04/24/18 14:38 Urine Color [place]ilda (Yellow) 04/24/18 13:05 Urine Turbidity Clear (Clear) 04/24/18 13:05 Urine pH 5.0 (5.0-7.0) 04/24/18 13:05 Ur Specific [place] 1.019 (1.003-1.030) 04/24/18 13:05 Urine Protein 100 mg/dl mg/dL (Negative) 04/24/18 13:05 Urine Glucose (UA) Neg mg/dL (Negative) 04/24/18 13:05 Urine Ketones Neg mg/dL (Negative) 04/24/18 13:05 Urine Blood Neg (Negative) 04/24/18 13:05 Urine Nitrite Neg (Negative) 04/24/18 13:05 Urine Bilirubin Neg (Negative) 04/24/18 13:05 Urine Urobilinogen 4.0 mg/dL (<2.0) 04/24/18 13:05 Ur Leukocyte Esterase Neg (Negative) 04/24/18 13:05 Urine WBC (Auto) 2.0 /HPF (0.0-6.0) 04/24/18 13:05 Urine RBC (Auto) < 1.0 /HPF (0.0-6.0) 04/24/18 13:05 Hyaline Casts 1 /LPF 04/24/18 13:05 Urine Mucus Few /HPF 04/24/18 13:05 Urine Total Volume 1500 04/25/18 11:00 Urine Creatinine 119.9 mg/dL (0.1-20.0) H 04/25/18 12:00 Ur Total Protein 24 Hr 165.00 (2-200) 04/25/18 11:00 Protein/Creatinin Ratio 0.14 04/25/18 12:00 Urine Total Protein 17 mg/dL (5-11.8) H 04/25/18 12:00 Hepatitis A IgM Ab Non-reactive (NonReactive) 04/24/18 17:39 Hep Bs Antigen Non-reactive (Negative) 04/24/18 17:39 Hep B Core IgM Ab Non-reactive (NonReactive) 04/24/18 17:39 Hepatitis C Antibody Non-reactive (NonReactive) 04/24/18 17:39
[2018-04-28] MEDS: HEPARIN SUB-Q SCH (22:00)
[2018-04-29] MEDS: LOPRESSOR PO SCH ×5 (00:13→21:57)
[2018-04-29] MEDS: LASIX IV SCH ×2 (06:00→19:36)
[2018-04-29 07:36] LABS: Alanine Aminotransferase 20 units/L (7-56); Albumin 3.4 g/dL (3.9-5); BUN/Creatinine Ratio 17; Blood Urea Nitrogen 15 mg/dL (9-20); Calcium 8.2 mg/dL (8.4-10.2); Hemolysis Index 20
[2018-04-29] MEDS ORDERED: ZESTRIL PO SCH (09:26)
[2018-04-29] MEDS: PEPCID PO SCH (09:31)
[2018-04-29] MEDS: SODIUM CHLORIDE FLUSH SYRINGE 10 ML IV SCH ×2 (09:31→21:58)
[2018-04-29] MEDS ORDERED: CORDARONE 150 MG in D5W 97 ML IV NR (10:00)
[2018-04-29] MEDS ORDERED: CORDARONE PO SCH (10:00)
[2018-04-29] MEDS: ZESTRIL PO SCH (10:38)
[2018-04-29] MEDS: HEPARIN SUB-Q SCH ×2 (10:38→21:56)
--- NOTE | 2018-04-29 11:01 | Progress Note ---
Assessment and Plan Continue IV diuretics and AV blocking medications. If his family comes today, we will discuss possibility of SANDRA plus electrical cardioversion for tomorrow. - Patient Problems (1) Heart failure with reduced ejection fraction Current Visit: Yes Status: Acute Qualifiers: Heart failure chronicity: acute Qualified Code(s): I50.21 - Acute systolic (congestive) heart failure (2) Atrial fibrillation with RVR Current Visit: Yes Status: Acute (3) Cardiomyopathy Current Visit: Yes Status: Acute (4) Obesity Current Visit: Yes Status: Chronic Qualifiers: Obesity type: due to excess calories Body mass index: BMI 45.0-49.9 (5) Proteinuria Current Visit: Yes Status: Acute Subjective Date of service: 04/29/18 Principal diagnosis: Acute HFrEF, CMP, Afib with RVR, Obesity, Probable YOLIS, Proteinuria Interval history: He still has some dyspnea. He remains in rapid atrial fibrillation. Objective Vital Signs Temp Pulse Resp BP BP Pulse Ox 04/29/18 08:26 98.0 F 88 22 105/76 94 04/29/18 06:01 121 H 04/29/18 04:23 98.4 F 96 H 18 106/76 92 04/29/18 03:29 150 H 04/28/18 23:14 97.9 F 78 18 97/58 94 04/28/18 19:35 98.5 F 74 18 114/61 94 04/28/18 16:29 97.8 F 71 22 135/71 90 04/28/18 12:00 132 H 04/28/18 11:04 98.1 F 85 20 109/76 93 - Physical Examination General: No Apparent Distress HEENT: Positive: EOMI, Normocephaly, Mucus Membranes Moist Neck: Positive: neck supple, trachea midline Cardiac: Positive: irregularly irregular, S1/S2 Lungs: Positive: Decreased Breath Sounds (at the bases) Neuro: Positive: Grossly Intact Abdomen: Positive: Soft, Active Bowel Sounds. Negative: Tender Skin: Positive: Clear. Negative: Rash Musculoskeletal: Normal Range of Motion Extremities: Absent: edema - Labs and Meds Cardiac Enzymes 04/29/18 Range/Units 06:18 AST 22 (5-40) units/L Comprehensive Metabolic Panel 04/29/18 Range/Units 06:18 Sodium 141 (137-145) mmol/L Potassium 3.9 (3.6-5.0) mmol/L Chloride 93.6 L (98-107) mmol/L Carbon Dioxide 38 H (22-30) mmol/L BUN 15 (9-20) mg/dL Creatinine 0.9 (0.8-1.5) mg/dL Glucose 115 H (75-100) mg/dL Calcium 8.2 L (8.4-10.2) mg/dL AST 22 (5-40) units/L ALT 20 (7-56) units/L Alkaline Phosphatase 82 (35-129) units/L Total Protein 7.5 (6.3-8.2) g/dL Albumin 3.4 L (3.9-5) g/dL - Imaging and Cardiology EKG: image reviewed Echo: report reviewed (EF 35-40%, mild LVH, mod to severe dilatation of the lA, trace to mild MR and TR.) - EKG Supraventricular dysrhythmia: atrial fibrillation (with RVR)
--- NOTE | 2018-04-29 13:28 | Event Note ---
Date: 04/29/18 Pt's family present at bedside. Indications, potential risks and benefits of SANDRA guided DCCV reviewed and they are agreeable to proceed in AM. Consents obtained. NPO after MN. Vinh KNUTSON NP / DR. VILLAFUERTE
[2018-04-29] MEDS: CORDARONE PO SCH ×3 (13:57→21:57)
--- NOTE | 2018-04-29 18:14 | Progress Note ---
Assessment and Plan Assessment and plan: 53 YO Male with morbid Obesity admitted through emergency room with acute on chronic systolic congestive heart failure , and A. fib with rapid ventricular rate patient was seen and evaluated by cardiology, received initially amiodarone drip later changed to oral antibiotics on, with mild improvement However continues to have persistent A. fib with rapid ventricular rate, cardiology planning cardioversion tomorrow --Persistent A. fib with rapid ventricular rate; continue amiodarone and beta blockers, Possible cardioversion tomorrow, Cardiology following, no need for anticoagulation, chads score 1 --Acute systolic congestive heart failure; ejection fraction 35-40% input output monitoring, Diuretics ,beta blockers and TERENCE inhibitor --Mild proteinuria/anasarca; Nephrology following, feels symptoms are secondary to congestive heart failure Advised outpatient renal workup upon discharge --Mild pleural effusion; pulmonary evaluation appreciated Symptoms probably secondary to congestive heart failure, recommend to continue diuresis --DVT prophylaxis; heparin --Morbid obesity; BMI 49.6, counseling weight reduction when medically stable Increase ambulation Possible discharge home in 1-2 days if stable History Interval history: Patient seen and examined medical records reviewed Patient continues to have A. fib with rapid ventricular rate Patient denies chest pain or shortness of breath Vital signs noted Hospitalist Physical - Constitutional Vitals: Temp Pulse Resp BP Pulse Ox 98.1 F 99 H 20 117/81 93 04/29/18 15:55 04/29/18 15:55 04/29/18 15:55 04/29/18 15:55 04/29/18 16:58 General appearance: Present: no acute distress, obese (morbidly obese) - EENT Eyes: Present: PERRL, EOM intact - Neck Neck: Present: supple, normal ROM - Respiratory Respiratory effort: normal Respiratory: bilateral: diminished, negative: rales, rhonchi, wheezing - Cardiovascular Rhythm: irregularly irregular Heart Sounds: Present: S1 & S2 (tachycardia) - Extremities Extremities: no ischemia, No edema - Abdominal General gastrointestinal: soft, non-tender, non-distended, normal bowel sounds - Integumentary Integumentary: Present: clear, warm - Psychiatric Psychiatric: appropriate mood/affect, cooperative - Neurologic Neurologic: CNII-XII intact, moves all extremities Results - Labs CBC & Chem 7: 04/28/18 06:21 04/29/18 06:18 Labs: Laboratory Last Values WBC 5.6 K/mm3 (4.5-11.0) 04/28/18 06:21 RBC 5.37 M/mm3 (3.65-5.03) H 04/28/18 06:21 Hgb 16.4 gm/dl (11.8-15.2) H 04/28/18 06:21 Hct 51.1 % (35.5-45.6) H 04/28/18 06:21 MCV 95 fl (84-94) H 04/28/18 06:21 MCH 31 pg (28-32) 04/28/18 06:21 MCHC 32 % (32-34) 04/28/18 06:21 RDW 14.0 % (13.2-15.2) 04/28/18 06:21 Plt Count 181 K/mm3 (140-440) 04/28/18 06:21 Lymph % (Auto) 22.2 % (13.4-35.0) 04/28/18 06:21 [place] % (Auto) 10.2 % (0.0-7.3) H 04/28/18 06:21 Eos % (Auto) 4.6 % (0.0-4.3) H 04/28/18 06:21 Baso % (Auto) 0.6 % (0.0-1.8) 04/28/18 06:21 Lymph # 1.2 K/mm3 (1.2-5.4) 04/28/18 06:21 [place] # 0.6 K/mm3 (0.0-0.8) 04/28/18 06:21 Eos # 0.3 K/mm3 (0.0-0.4) 04/28/18 06:21 Baso # 0.0 K/mm3 (0.0-0.1) 04/28/18 06:21 Seg Neutrophils % 62.4 % (40.0-70.0) 04/28/18 06:21 Seg Neutrophils # 3.5 K/mm3 (1.8-7.7) 04/28/18 06:21 PT 14.5 Sec. (12.2-14.9) 04/24/18 15:44 INR 1.07 (0.87-1.13) 04/24/18 15:44 APTT 29.8 Sec. (24.2-36.6) 04/24/18 15:44 D-Dimer 651.6 ng/mlDDU (0-234) H 04/24/18 17:39 Sodium 141 mmol/L (137-145) 04/29/18 06:18 Potassium 3.9 mmol/L (3.6-5.0) 04/29/18 06:18 Chloride 93.6 mmol/L (98-107) L 04/29/18 06:18 Carbon Dioxide 38 mmol/L (22-30) H 04/29/18 06:18 Anion Gap 13 mmol/L 04/29/18 06:18 BUN 15 mg/dL (9-20) 04/29/18 06:18 Creatinine 0.9 mg/dL (0.8-1.5) 04/29/18 06:18 Estimated GFR > 60 ml/min 04/29/18 06:18 BUN/Creatinine Ratio 17 % 04/29/18 06:18 Glucose 115 mg/dL (75-100) H 04/29/18 06:18 POC Glucose 83 (70-105) 04/24/18 20:29 Calcium 8.2 mg/dL (8.4-10.2) L 04/29/18 06:18 Phosphorus 5.00 mg/dL (2.5-4.5) H 04/25/18 05:22 Magnesium 1.80 mg/dL (1.7-2.3) 04/26/18 07:09 Total Bilirubin 0.90 mg/dL (0.1-1.2) 04/29/18 06:18 Direct Bilirubin 0.4 mg/dL (0-0.2) H 04/24/18 14:38 Indirect Bilirubin 0.6 mg/dL 04/24/18 14:38 AST 22 units/L (5-40) 04/29/18 06:18 ALT 20 units/L (7-56) 04/29/18 06:18 Alkaline Phosphatase 82 units/L (35-129) 04/29/18 06:18 Total Creatine Kinase 88 units/L (55-170) 04/24/18 20:35 CK-MB (CK-2) 2.1 ng/mL (0.0-4.0) 04/24/18 20:35 CK-MB (CK-2) Rel Index 2.3 (0-4) 04/24/18 20:35 Troponin T < 0.010 ng/mL (0.00-0.029) 04/24/18 20:35 NT-Pro-B Natriuret Pep 1235 pg/mL (0-900) H 04/24/18 15:44 Total Protein 7.5 g/dL (6.3-8.2) 04/29/18 06:18 Albumin 3.4 g/dL (3.9-5) L 04/29/18 06:18 Albumin/Globulin Ratio 0.8 % 04/29/18 06:18 Lipase 44 units/L (13-60) 04/24/18 14:38 Urine Color [place] (Yellow) 04/24/18 13:05 Urine Turbidity Clear (Clear) 04/24/18 13:05 Urine pH 5.0 (5.0-7.0) 04/24/18 13:05 Ur Specific [place] 1.019 (1.003-1.030) 04/24/18 13:05 Urine Protein 100 mg/dl mg/dL (Negative) 04/24/18 13:05 Urine Glucose (UA) Neg mg/dL (Negative) 04/24/18 13:05 Urine Ketones Neg mg/dL (Negative) 04/24/18 13:05 Urine Blood Neg (Negative) 04/24/18 13:05 Urine Nitrite Neg (Negative) 04/24/18 13:05 Urine Bilirubin Neg (Negative) 04/24/18 13:05 Urine Urobilinogen 4.0 mg/dL (<2.0) 04/24/18 13:05 Ur Leukocyte Esterase Neg (Negative) 04/24/18 13:05 Urine WBC (Auto) 2.0 /HPF (0.0-6.0) 04/24/18 13:05 Urine RBC (Auto) < 1.0 /HPF (0.0-6.0) 04/24/18 13:05 Hyaline Casts 1 /LPF 04/24/18 13:05 Urine Mucus Few /HPF 04/24/18 13:05 Urine Total Volume 1500 04/25/18 11:00 Urine Creatinine 119.9 mg/dL (0.1-20.0) H 04/25/18 12:00 Ur Total Protein 24 Hr 165.00 (2-200) 04/25/18 11:00 Protein/Creatinin Ratio 0.14 04/25/18 12:00 Urine Total Protein 17 mg/dL (5-11.8) H 04/25/18 12:00 Hepatitis A IgM Ab Non-reactive (NonReactive) 04/24/18 17:39 Hep Bs Antigen Non-reactive (Negative) 04/24/18 17:39 Hep B Core IgM Ab Non-reactive (NonReactive) 04/24/18 17:39 Hepatitis C Antibody Non-reactive (NonReactive) 04/24/18 17:39
--- NOTE | 2018-04-29 19:13 | Progress Note ---
Assessment and Plan Patient morbidly Obese. Mild shortness of breath at rest.O2 saturation 93% on 2 litres O2.Complaining some non productive cough. - Patient Problems (1) Pulmonary edema Current Visit: Yes Status: Acute Plan to address problem: Management as per primary care and cardiology (2) Atrial fibrillation with RVR Current Visit: Yes Status: Acute Plan to address problem: Management as per cardiology. (3) Cardiomyopathy Current Visit: Yes Status: Acute Plan to address problem: Management as per cardiology. (4) Nephrotic syndrome Current Visit: Yes Status: Acute Plan to address problem: Management as per nephrology. (5) Morbid obesity with BMI of 45.0-49.9, adult Current Visit: Yes Status: Acute Plan to address problem: Counselled to loose weight. Continue S/C Heparin. (6) Pleural effusion, right Current Visit: Yes Status: Acute Plan to address problem: Obtaining ultrasound of chest. Subjective Date of service: 04/29/18 Principal diagnosis: Acute HFrEF, CMP, Afib with RVR, Obesity, Probable YOLIS, Proteinuria Interval history: Patient morbidly Obese. Mild shortness of breath at rest.O2 saturation 93% on 2 litres O2.Complaining some non productive cough. Objective Vital Signs - 12hr 04/29/18 04/29/18 04/29/18 08:26 10:00 10:38 Temperature 98.0 F Pulse Rate 88 Respiratory 22 18 Rate Blood Pressure 105/76 105/76 O2 Sat by Pulse 94 Oximetry 04/29/18 04/29/18 04/29/18 11:49 13:59 15:55 Temperature 98.1 F 98.1 F Pulse Rate 71 99 H Respiratory 22 20 Rate Blood Pressure 95/64 95/64 117/81 O2 Sat by Pulse 96 91 Oximetry 04/29/18 16:58 Temperature Pulse Rate Respiratory Rate Blood Pressure O2 Sat by Pulse 93 Oximetry Constitutional: no acute distress, alert, other (Morbidley obese.) Eyes: non-icteric ENT: oropharynx moist Neck: supple, other (Short.) Ascultation: Bilateral: wheezes (Mild wheezing upper airways.) Gastrointestinal: normoactive bowel sounds, soft, non-tender Integumentary: normal Extremities: no cyanosis, other (Trace edema) Neurologic: normal mental status, non-focal exam, pupils equal and round, CN II- XII normal Psychiatric: mood appropriate CBC and BMP: 07/04/18 06:21 04/29/18 06:18 ABG, PT/INR, D-dimer: PT/INR, D-dimer PT 14.5 Sec. (12.2-14.9) 04/24/18 15:44 INR 1.07 (0.87-1.13) 04/24/18 15:44 D-Dimer 651.6 ng/mlDDU (0-234) H 04/24/18 17:39 Abnormal lab findings: Abnormal Labs 04/24/18 04/24/18 04/24/18 14:38 14:38 14:38 RBC 5.48 H Hgb 16.7 H Hct 51.6 H MCV [place] % (Auto) 10.3 H Eos % (Auto) D-Dimer Chloride Carbon Dioxide 31 H Glucose 111 H Calcium Phosphorus Direct Bilirubin 0.4 H NT-Pro-B Natriuret Pep Albumin 3.4 L 3.4 L Urine Creatinine Urine Total Protein 04/24/18 04/24/18 04/25/18 15:44 17:39 05:22 RBC Hgb Hct MCV [place] % (Auto) Eos % (Auto) D-Dimer 651.6 H Chloride 97.0 L Carbon Dioxide 31 H Glucose 101 H Calcium Phosphorus 5.00 H Direct Bilirubin NT-Pro-B Natriuret Pep 1235 H Albumin Urine Creatinine Urine Total Protein 04/25/18 04/26/18 04/26/18 12:00 07:09 07:09 RBC 5.38 H Hgb 16.9 H Hct 51.5 H MCV 96 H [place] % (Auto) 9.3 H Eos % (Auto) 4.9 H D-Dimer Chloride 97.6 L Carbon Dioxide 36 H Glucose 127 H Calcium Phosphorus Direct Bilirubin NT-Pro-B Natriuret Pep Albumin 3.3 L Urine Creatinine 119.9 H Urine Total Protein 17 H 04/27/18 04/27/18 04/28/18 06:49 06:49 06:21 RBC 5.43 H 5.37 H Hgb 16.6 H 16.4 H Hct 51.6 H 51.1 H MCV 95 H 95 H [place] % (Auto) 11.0 H 10.2 H Eos % (Auto) 5.6 H 4.6 H D-Dimer Chloride 95.4 L Carbon Dioxide 36 H Glucose 110 H Calcium Phosphorus Direct Bilirubin NT-Pro-B Natriuret Pep Albumin 3.5 L Urine Creatinine Urine Total Protein 04/28/18 04/29/18 06:21 06:18 RBC Hgb Hct MCV [place] % (Auto) Eos % (Auto) D-Dimer Chloride 95.3 L 93.6 L Carbon Dioxide 34 H 38 H Glucose 111 H 115 H Calcium 8.2 L Phosphorus Direct Bilirubin NT-Pro-B Natriuret Pep Albumin 3.4 L 3.4 L Urine Creatinine Urine Total Protein Chest x-ray: report reviewed (mild congestive heart failure.), image reviewed CT scan - chest: report reviewed (Mild cardiomegaly, right pleural effusion.No PE.), image reviewed
[2018-04-30] MEDS: LASIX IV SCH ×2 (05:35→20:46)
[2018-04-30 07:26] LABS: ANA Screen, IFA Negative (Negative); Albumin 3.5 g/dL (3.8-4.8); Gamma Globulin 1.9 g/dL (0.8-1.7)
[2018-04-30] MEDS: PEPCID PO SCH (10:00)
[2018-04-30] MEDS ORDERED: HEPARIN/ 0.45% NACL-25,000 UNIT/500 ML 25,000 UNIT/500 ML BAG IV SCH (10:00)
[2018-04-30] MEDS: SODIUM CHLORIDE FLUSH SYRINGE 10 ML IV SCH ×2 (10:00→21:28)
[2018-04-30] MEDS ORDERED: HEPARIN 10,000 UNITS/10 ML IV ONE (10:00)
[2018-04-30 10:59] LABS: Hematocrit 52.7 % (35.5-45.6)
[2018-04-30 11:07] LABS: INR 0.96 (0.87-1.13)
[2018-04-30 11:08] LABS: Partial Thromboplastin Time 28.6 Sec. (24.2-36.6)
[2018-04-30] MEDS: LOPRESSOR PO SCH ×3 (11:18→21:46)
[2018-04-30] MEDS: CORDARONE PO SCH ×4 (11:18→21:47)
--- NOTE | 2018-04-30 13:46 | Progress Note ---
Assessment and Plan Patient morbidly Obese. Mild shortness of breath at rest.O2 saturation 93% on 2 litres O2.Complaining some non productive cough. - Patient Problems (1) Pulmonary edema Current Visit: Yes Status: Acute Plan to address problem: Management as per primary care and cardiology (2) Atrial fibrillation with RVR Current Visit: Yes Status: Acute Plan to address problem: Management as per cardiology. (3) Cardiomyopathy Current Visit: Yes Status: Acute Plan to address problem: Management as per cardiology. (4) Nephrotic syndrome Current Visit: Yes Status: Acute Plan to address problem: Management as per nephrology. (5) Morbid obesity with BMI of 45.0-49.9, adult Current Visit: Yes Status: Acute Plan to address problem: Counselled to loose weight. Continue S/C Heparin. (6) Pleural effusion, right Current Visit: Yes Status: Acute Plan to address problem: Obtaining ultrasound of chest. Subjective Date of service: 04/30/18 Principal diagnosis: Acute HFrEF, CMP, Afib with RVR, Obesity, Probable YOLIS, Proteinuria Interval history: Patient morbidly Obese. Mild shortness of breath at rest.O2 saturation 93% on 2 litres O2.Complaining some non productive cough. Objective Vital Signs - 12hr 04/30/18 04/30/18 04/30/18 05:27 07:31 08:18 Temperature 97.7 F 98.2 F Pulse Rate 108 H 113 H Respiratory 20 20 22 Rate Blood Pressure 116/83 132/88 O2 Sat by Pulse 94 89 98 Oximetry 04/30/18 04/30/18 04/30/18 10:00 11:12 11:18 Temperature Pulse Rate 132 H 114 H 116 H Respiratory Rate Blood Pressure 114/90 114/90 O2 Sat by Pulse 90 Oximetry 04/30/18 11:35 Temperature 98.4 F Pulse Rate 124 H Respiratory 20 Rate Blood Pressure 128/85 O2 Sat by Pulse 97 Oximetry Constitutional: no acute distress, alert, other (Morbidley obese.) Eyes: non-icteric ENT: oropharynx moist Neck: supple, other (Short.) Ascultation: Bilateral: wheezes (Mild wheezing upper airways.) Gastrointestinal: normoactive bowel sounds, soft, non-tender Integumentary: normal Extremities: no cyanosis, other (Trace edema) Neurologic: normal mental status, non-focal exam, pupils equal and round, CN II- XII normal Psychiatric: mood appropriate CBC and BMP: 04/30/18 10:39 04/29/18 06:18 ABG, PT/INR, D-dimer: ABG POC ABG pH 7.432 (7.35-7.45) 04/30/18 10:58 POC ABG pCO2 69.8 (35-45) H 04/30/18 10:58 POC ABG pO2 43 (80-105) L 04/30/18 10:58 POC ABG HCO3 46.5 04/30/18 10:58 POC ABG Total CO2 49 04/30/18 10:58 POC ABG O2 Sat 77 04/30/18 10:58 PT/INR, D-dimer PT 13.3 Sec. (12.2-14.9) 04/30/18 10:34 INR 0.96 (0.87-1.13) 04/30/18 10:34 D-Dimer 651.6 ng/mlDDU (0-234) H 04/24/18 17:39 Abnormal lab findings: Abnormal Labs 04/24/18 04/24/18 04/24/18 14:38 14:38 14:38 RBC 5.48 H Hgb 16.7 H Hct 51.6 H MCV [place] % (Auto) 10.3 H Eos % (Auto) D-Dimer POC ABG pCO2 POC ABG pO2 Chloride Carbon Dioxide 31 H Glucose 111 H Calcium Phosphorus Direct Bilirubin 0.4 H NT-Pro-B Natriuret Pep Albumin 3.4 L 3.4 L Gamma Globulins PEP Interpretation Urine Creatinine Urine Total Protein 04/24/18 04/24/18 04/25/18 15:44 17:39 05:22 RBC Hgb Hct MCV [place] % (Auto) Eos % (Auto) D-Dimer 651.6 H POC ABG pCO2 POC ABG pO2 Chloride 97.0 L Carbon Dioxide 31 H Glucose 101 H Calcium Phosphorus 5.00 H Direct Bilirubin NT-Pro-B Natriuret Pep 1235 H Albumin Gamma Globulins PEP Interpretation Urine Creatinine Urine Total Protein 04/25/18 04/25/18 04/26/18 05:22 12:00 07:09 RBC 5.38 H Hgb 16.9 H Hct 51.5 H MCV 96 H [place] % (Auto) 9.3 H Eos % (Auto) 4.9 H D-Dimer POC ABG pCO2 POC ABG pO2 Chloride Carbon Dioxide Glucose Calcium Phosphorus Direct Bilirubin NT-Pro-B Natriuret Pep Albumin 3.5 L Gamma Globulins 1.9 H PEP Interpretation see below H Urine Creatinine 119.9 H Urine Total Protein 17 H 04/26/18 04/27/18 04/27/18 07:09 06:49 06:49 RBC 5.43 H Hgb 16.6 H Hct 51.6 H MCV 95 H [place] % (Auto) 11.0 H Eos % (Auto) 5.6 H D-Dimer POC ABG pCO2 POC ABG pO2 Chloride 97.6 L 95.4 L Carbon Dioxide 36 H 36 H Glucose 127 H 110 H Calcium Phosphorus Direct Bilirubin NT-Pro-B Natriuret Pep Albumin 3.3 L 3.5 L Gamma Globulins PEP Interpretation Urine Creatinine Urine Total Protein 04/28/18 04/28/18 04/29/18 06:21 06:21 06:18 RBC 5.37 H Hgb 16.4 H Hct 51.1 H MCV 95 H [place] % (Auto) 10.2 H Eos % (Auto) 4.6 H D-Dimer POC ABG pCO2 POC ABG pO2 Chloride 95.3 L 93.6 L Carbon Dioxide 34 H 38 H Glucose 111 H 115 H Calcium 8.2 L Phosphorus Direct Bilirubin NT-Pro-B Natriuret Pep Albumin 3.4 L 3.4 L Gamma Globulins PEP Interpretation Urine Creatinine Urine Total Protein 04/30/18 04/30/18 10:39 10:58 RBC Hgb 17.0 H Hct 52.7 H MCV [place] % (Auto) Eos % (Auto) D-Dimer POC ABG pCO2 69.8 H POC ABG pO2 43 L Chloride Carbon Dioxide Glucose Calcium Phosphorus Direct Bilirubin NT-Pro-B Natriuret Pep Albumin Gamma Globulins PEP Interpretation Urine Creatinine Urine Total Protein
--- NOTE | 2018-04-30 14:39 | Ultrasound Report ---
ULTRASOUND CHEST History: Pleural effusion. Description of procedure: Targeted martin scale ultrasound was performed on both sides of the chest. The images demonstrate a small layering right pleural effusion measuring 87 cc. No left pleural fluid is demonstrated. Impression: Small right pleural effusion measuring 87 cc.
[2018-04-30] MEDS ORDERED: XYLOCAINE MPF 2% ONE (15:30)
[2018-04-30] MEDS ORDERED: DIPRIVAN 10 MG/ML IV ONE ×2 (15:58)
[2018-04-30] MEDS ORDERED: NACL 0.9% 500 ML 500 ML ONE (16:08)
[2018-04-30] MEDS ORDERED: HURRICAINE ONE 20% TOPICAL SPRAY MM (16:08)
[2018-04-30] MEDS ORDERED: HEPARIN ONE (16:56)
[2018-04-30] MEDS ORDERED: HEPARIN 10,000 UNITS/10 ML ONE (17:05)
--- NOTE | 2018-04-30 17:10 | Progress Note ---
Assessment and Plan S/p SANDRA guided cardioversion with conversion to NSR twice but pt returns to AFib after brief period of time. Pt currently remains in AFib with RVR. Cont lopressor, PO amio and amio gtt. Consider d/c of amio gtt tomorrow once HR control is achieved. Initiate Eliquis and d/c heparin gtt in AM. Cont diuresis with IV lasix. Pt with probable YOLIS. Consider further evaluation per primary. The patient has been seen in conjunction with Dr. Rosas who agrees with the assessment and plan of care. - Patient Problems (1) Heart failure with reduced ejection fraction Current Visit: Yes Status: Acute Qualifiers: Heart failure chronicity: acute Qualified Code(s): I50.21 - Acute systolic (congestive) heart failure (2) Cardiomyopathy Current Visit: Yes Status: Acute (3) Atrial fibrillation with RVR Current Visit: Yes Status: Acute (4) Proteinuria Current Visit: Yes Status: Acute (5) Obesity Current Visit: Yes Status: Chronic Qualifiers: Obesity type: due to excess calories Body mass index: BMI 45.0-49.9 Subjective Date of service: 04/30/18 Principal diagnosis: Acute HFrEF, CMP, Afib with RVR, Obesity, Probable YOLIS, Proteinuria Interval history: pt for SANDRA guided DCCV today. no current cardiac complaints. remains in AFib with RVR. Objective Last Vital Signs Temp 98.4 F 04/30/18 11:35 Pulse 124 H 04/30/18 11:35 Resp 20 04/30/18 11:35 BP 128/85 04/30/18 11:35 Pulse Ox 97 04/30/18 11:35 - Physical Examination General: No Apparent Distress HEENT: Positive: EOMI, Normocephaly, Mucus Membranes Moist Neck: Positive: neck supple, trachea midline Cardiac: Positive: irregularly irregular, S1/S2, Tachycardia Lungs: Positive: Decreased Breath Sounds Neuro: Positive: Grossly Intact Abdomen: Positive: Soft, Active Bowel Sounds. Negative: Tender Skin: Positive: Clear. Negative: Rash Musculoskeletal: Normal Range of Motion Extremities: Absent: edema - Labs and Meds Coagulation 04/30/18 Range/Units 10:34 PT 13.3 (12.2-14.9) Sec. INR 0.96 (0.87-1.13) APTT 28.6 (24.2-36.6) Sec. CBC 04/30/18 Range/Units 10:39 Hgb 17.0 H (11.8-15.2) gm/dl Hct 52.7 H (35.5-45.6) % Plt Count 189 (140-440) K/mm3 Comprehensive Metabolic Panel 04/25/18 Range/Units 05:22 Albumin 3.5 L (3.8-4.8) g/dL - Imaging and Cardiology EKG: image reviewed Echo: report reviewed (EF 35-40%, mild LVH, mod to severe dilatation of the lA, trace to mild MR and TR.)
[2018-04-30] MEDS ORDERED: CORDARONE IV ONE (17:14)
--- NOTE | 2018-04-30 17:41 | Anesthesia Consultation ---
Anesthesia Consult and Med Hx Date of service: 04/30/18 - Airway Anesthetic Teeth Evaluation: Poor (loose, broken teeth) ROM Head & Neck: Inadequate Mental/Hyoid Distance: Adequate Mallampati Class: Class IV Intubation Access Assessment: Difficult - Pre-Operative Health Status ASA Pre-Surgery Classification: ASA4 Proposed Anesthetic Plan: MAC - Pulmonary Hx Smoking: Yes Hx Asthma: No SOB: Yes COPD: No Hx Pneumonia: No Hx Sleep Apnea: Yes - Cardiovascular System Hx Hypertension: Yes Hx Cardia Arrhythmia: Yes (atrial fibrillation) - Central Nervous System Hx Psychiatric Problems: No - Endocrine Hx End Stage Renal Disease: No - Hematic Hx Anemia: No - Other Systems Hx Cancer: No Hx Obesity: Yes
--- NOTE | 2018-04-30 17:42 | Anesthesia Day of Surgery ---
Anesthesia Day of Surgery - Day of Surgery Patient Examined: Yes Patient H&P Reviewed: Yes Patient is NPO: Yes
[2018-04-30] MEDS: CORDARONE 900 MG in D5W 482 ML IV SCH (17:47)
[2018-04-30] MEDS ORDERED: HURRICAINE ONE 20% TOPICAL SPRAY MM NR (18:00)
[2018-04-30] MEDS ORDERED: CORDARONE 150 MG in D5W 100 ML IV ONE ×2 (18:31→19:00)
[2018-04-30] MEDS ORDERED: LOPRESSOR IV ONE (19:00)
--- NOTE | 2018-04-30 19:07 | Progress Note ---
Assessment and Plan Assessment and plan: 53 YO Male with morbid Obesity admitted through emergency room with acute on chronic systolic congestive heart failure , and A. fib with rapid ventricular rate patient was seen by cardiology, amiodarone drip later changed to oral continues to have persistent A. fib RVR,SANDRA cardioversion ,no improvement --Persistent A. fib with rapid ventricular rate; status post SANDRA cardioversion Briefly changed to sinus again returned to A. fib RVR, Continue amiodarone drip , beta blockers, heparin drip/Eliquis, for anticoagulation cardiology following --Acute systolic congestive heart failure; ejection fraction 35-40% input output monitoring, Diuretics ,beta blockers and TERENCE inhibitor --Mild proteinuria/anasarca; Nephrology following, feels symptoms are secondary to congestive heart failure Advised outpatient renal workup upon discharge --Mild pleural effusion; pulmonary evaluation appreciated Symptoms probably secondary to congestive heart failure, recommend to continue diuresis --DVT prophylaxis; heparin --Morbid obesity; BMI 49.6, counseling weight reduction when medically stable Increase ambulation Possible discharge home in 1-2 days if stable History Interval history: Patient seen and examined medical records reviewed Patient underwent SANDRA guided cardioversion, A. fib changed to sinus rhythm Changed back to A. fib with rapid ventricular rate Patient is on amiodarone drip, oral amiodarone and beta blockers Heparin drip for anticoagulation, cardiology changed to Eliquis Patient feels better no new complaints Vital signs reviewed Hospitalist Physical - Constitutional Vitals: Temp Pulse Resp BP Pulse Ox 98.6 F 109 H 20 110/74 91 04/30/18 18:36 04/30/18 18:36 04/30/18 18:36 04/30/18 18:36 04/30/18 18:36 General appearance: Present: no acute distress, well-nourished, obese (morbidly obese) - EENT Eyes: Present: PERRL, EOM intact - Neck Neck: Present: supple, normal ROM - Respiratory Respiratory effort: normal Respiratory: bilateral: diminished, negative: rales, rhonchi, wheezing - Cardiovascular Rhythm: regular Heart Sounds: Present: S1 & S2 - Extremities Extremities: no ischemia, No edema - Abdominal General gastrointestinal: soft, non-tender, non-distended, normal bowel sounds - Integumentary Integumentary: Present: clear, warm - Psychiatric Psychiatric: appropriate mood/affect, cooperative - Neurologic Neurologic: CNII-XII intact, moves all extremities Results - Labs CBC & Chem 7: 04/30/18 10:39 04/29/18 06:18 Labs: Laboratory Last Values WBC 5.6 K/mm3 (4.5-11.0) 04/28/18 06:21 RBC 5.37 M/mm3 (3.65-5.03) H 04/28/18 06:21 Hgb 17.0 gm/dl (11.8-15.2) H 04/30/18 10:39 Hct 52.7 % (35.5-45.6) H 04/30/18 10:39 MCV 95 fl (84-94) H 04/28/18 06:21 MCH 31 pg (28-32) 04/28/18 06:21 MCHC 32 % (32-34) 04/28/18 06:21 RDW 14.0 % (13.2-15.2) 04/28/18 06:21 Plt Count 189 K/mm3 (140-440) 04/30/18 10:39 Lymph % (Auto) 22.2 % (13.4-35.0) 04/28/18 06:21 [place] % (Auto) 10.2 % (0.0-7.3) H 04/28/18 06:21 Eos % (Auto) 4.6 % (0.0-4.3) H 04/28/18 06:21 Baso % (Auto) 0.6 % (0.0-1.8) 04/28/18 06:21 Lymph # 1.2 K/mm3 (1.2-5.4) 04/28/18 06:21 [place] # 0.6 K/mm3 (0.0-0.8) 04/28/18 06:21 Eos # 0.3 K/mm3 (0.0-0.4) 04/28/18 06:21 Baso # 0.0 K/mm3 (0.0-0.1) 04/28/18 06:21 Seg Neutrophils % 62.4 % (40.0-70.0) 04/28/18 06:21 Seg Neutrophils # 3.5 K/mm3 (1.8-7.7) 04/28/18 06:21 PT 13.3 Sec. (12.2-14.9) 04/30/18 10:34 INR 0.96 (0.87-1.13) 04/30/18 10:34 APTT 28.6 Sec. (24.2-36.6) 04/30/18 10:34 D-Dimer 651.6 ng/mlDDU (0-234) H 04/24/18 17:39 POC ABG pH 7.432 (7.35-7.45) 04/30/18 10:58 POC ABG pCO2 69.8 (35-45) H 04/30/18 10:58 POC ABG pO2 43 (80-105) L 04/30/18 10:58 POC ABG HCO3 46.5 04/30/18 10:58 POC ABG Total CO2 49 04/30/18 10:58 POC ABG O2 Sat 77 04/30/18 10:58 POC ABG Base Excess 22 04/30/18 10:58 FiO2 21 % 04/30/18 10:58 Sodium 141 mmol/L (137-145) 04/29/18 06:18 Potassium 3.9 mmol/L (3.6-5.0) 04/29/18 06:18 Chloride 93.6 mmol/L (98-107) L 04/29/18 06:18 Carbon Dioxide 38 mmol/L (22-30) H 04/29/18 06:18 Anion Gap 13 mmol/L 04/29/18 06:18 BUN 15 mg/dL (9-20) 04/29/18 06:18 Creatinine 0.9 mg/dL (0.8-1.5) 04/29/18 06:18 Estimated GFR > 60 ml/min 04/29/18 06:18 BUN/Creatinine Ratio 17 % 04/29/18 06:18 Glucose 115 mg/dL (75-100) H 04/29/18 06:18 POC Glucose 83 (70-105) 04/24/18 20:29 Calcium 8.2 mg/dL (8.4-10.2) L 04/29/18 06:18 Phosphorus 5.00 mg/dL (2.5-4.5) H 04/25/18 05:22 Magnesium 1.80 mg/dL (1.7-2.3) 04/26/18 07:09 Total Bilirubin 0.90 mg/dL (0.1-1.2) 04/29/18 06:18 Direct Bilirubin 0.4 mg/dL (0-0.2) H 04/24/18 14:38 Indirect Bilirubin 0.6 mg/dL 04/24/18 14:38 AST 22 units/L (5-40) 04/29/18 06:18 ALT 20 units/L (7-56) 04/29/18 06:18 Alkaline Phosphatase 82 units/L (35-129) 04/29/18 06:18 Total Creatine Kinase 88 units/L (55-170) 04/24/18 20:35 CK-MB (CK-2) 2.1 ng/mL (0.0-4.0) 04/24/18 20:35 CK-MB (CK-2) Rel Index 2.3 (0-4) 04/24/18 20:35 Troponin T < 0.010 ng/mL (0.00-0.029) 04/24/18 20:35 NT-Pro-B Natriuret Pep 1235 pg/mL (0-900) H 04/24/18 15:44 Serum Total Protein 7.5 g/dL (6.1-8.1) 04/25/18 05:22 Total Protein 7.5 g/dL (6.3-8.2) 04/29/18 06:18 Albumin 3.4 g/dL (3.9-5) L 04/29/18 06:18 Albumin/Globulin Ratio 0.8 % 04/29/18 06:18 Kzlns-4-Ugrbptwxs 0.3 g/dL (0.2-0.3) 04/25/18 05:22 Mgdqq-4-Ikcqumaho 0.8 g/dL (0.5-0.9) 04/25/18 05:22 Beta Globulins 0.5 g/dL (0.2-0.5) 04/25/18 05:22 Gamma Globulins 1.9 g/dL (0.8-1.7) H 04/25/18 05:22 Abnorm Protein Band 1 see below 04/25/18 05:22 PEP Interpretation see below H 04/25/18 05:22 Lipase 44 units/L (13-60) 04/24/18 14:38 Urine Color [place] (Yellow) 04/24/18 13:05 Urine Turbidity Clear (Clear) 04/24/18 13:05 Urine pH 5.0 (5.0-7.0) 04/24/18 13:05 Ur Specific [place] 1.019 (1.003-1.030) 04/24/18 13:05 Urine Protein 100 mg/dl mg/dL (Negative) 04/24/18 13:05 Urine Glucose (UA) Neg mg/dL (Negative) 04/24/18 13:05 Urine Ketones Neg mg/dL (Negative) 04/24/18 13:05 Urine Blood Neg (Negative) 04/24/18 13:05 Urine Nitrite Neg (Negative) 04/24/18 13:05 Urine Bilirubin Neg (Negative) 04/24/18 13:05 Urine Urobilinogen 4.0 mg/dL (<2.0) 04/24/18 13:05 Ur Leukocyte Esterase Neg (Negative) 04/24/18 13:05 Urine WBC (Auto) 2.0 /HPF (0.0-6.0) 04/24/18 13:05 Urine RBC (Auto) < 1.0 /HPF (0.0-6.0) 04/24/18 13:05 Hyaline Casts 1 /LPF 04/24/18 13:05 Urine Mucus Few /HPF 04/24/18 13:05 Urine Total Volume 1500 04/25/18 11:00 Urine Creatinine 119.9 mg/dL (0.1-20.0) H 04/25/18 12:00 Ur Total Protein 24 Hr 165.00 (2-200) 04/25/18 11:00 Protein/Creatinin Ratio 0.14 04/25/18 12:00 Urine Total Protein 17 mg/dL (5-11.8) H 04/25/18 12:00 ALEJA Screen Negative (Negative) 04/25/18 05:22 Complement C3 154 mg/dL (82-185) 04/25/18 05:22 Complement C4 22 mg/dL (15-53) 04/25/18 05:22 Hepatitis A IgM Ab Non-reactive (NonReactive) 04/24/18 17:39 Hep Bs Antigen Non-reactive (Negative) 04/24/18 17:39 Hep B Core IgM Ab Non-reactive (NonReactive) 04/24/18 17:39 Hepatitis C Antibody Non-reactive (NonReactive) 04/24/18 17:39
[2018-04-30] MEDS: ZESTRIL PO SCH (19:31)
[2018-04-30] MEDS: ELIQUIS PO SCH (21:47)
[2018-05-01] MEDS: LASIX IV SCH ×2 (05:18→18:36)
[2018-05-01] MEDS ORDERED: LOPRESSOR IV ONE (06:01)
[2018-05-01] MEDS: LOPRESSOR PO SCH ×3 (08:32→21:33)
[2018-05-01] MEDS: ZESTRIL PO SCH (11:00)
[2018-05-01] MEDS: PEPCID PO SCH (11:01)
[2018-05-01] MEDS: ELIQUIS PO SCH ×2 (11:01→21:33)
[2018-05-01] MEDS: SODIUM CHLORIDE FLUSH SYRINGE 10 ML IV SCH ×2 (11:02→21:33)
--- NOTE | 2018-05-01 11:05 | Progress Note ---
Assessment and Plan Assessment and plan: 53 YO Male with morbid Obesity admitted through emergency room with acute on chronic systolic congestive heart failure , and A. fib with rapid ventricular rate patient was seen by cardiology, amiodarone drip later changed to oral continues to have persistent A. fib RVR,SANDRA cardioversion ,no improvement --Persistent A. fib with rapid ventricular rate; status post SANDRA cardioversion Briefly changed to sinus again returned to A. fib RVR, Continue amiodarone , beta blockers, Eliquis, for anticoagulation persistent A. fib with rapid ventricular rate cardiology following --Acute systolic congestive heart failure; ejection fraction 35-40% input output monitoring, Diuretics ,beta blockers and TERENCE inhibitor --Mild proteinuria/anasarca; Nephrology following, feels symptoms are secondary to congestive heart failure Advised outpatient renal workup upon discharge --Mild pleural effusion; pulmonary evaluation appreciated Symptoms probably secondary to congestive heart failure, recommend to continue diuresis --DVT prophylaxis; heparin --Morbid obesity; BMI 49.6, counseling weight reduction when medically stable Increase ambulation Possible discharge home in 1-2 days if stable History Interval history: Patient seen and evaluated medical records reviewed Patient underwent the cardioversion, unsuccessful Patient continues to be in A. fib with rapid ventricular rate On amiodarone, denies any chest pain or shortness of breath Vital signs noted Hospitalist Physical - Constitutional Vitals: Temp Pulse Resp BP Pulse Ox 97.8 F 128 H 20 113/76 92 05/01/18 08:07 05/01/18 11:00 05/01/18 08:42 05/01/18 11:00 05/01/18 08:42 General appearance: Present: no acute distress, well-nourished, obese (morbidly obese) - EENT Eyes: Present: PERRL, EOM intact - Neck Neck: Present: supple, normal ROM - Respiratory Respiratory effort: normal Respiratory: bilateral: diminished, negative: rales, rhonchi, wheezing - Cardiovascular Rhythm: irregularly irregular Heart Sounds: Present: S1 & S2 (rapid ventricular rate) - Extremities Extremities: no ischemia Extremity abnormal: edema - Abdominal General gastrointestinal: soft, non-tender, non-distended, normal bowel sounds - Integumentary Integumentary: Present: clear, warm - Psychiatric Psychiatric: appropriate mood/affect, cooperative - Neurologic Neurologic: CNII-XII intact, moves all extremities Results - Labs CBC & Chem 7: 04/30/18 10:39 04/29/18 06:18 Labs: Laboratory Last Values WBC 5.6 K/mm3 (4.5-11.0) 04/28/18 06:21 RBC 5.37 M/mm3 (3.65-5.03) H 04/28/18 06:21 Hgb 17.0 gm/dl (11.8-15.2) H 04/30/18 10:39 Hct 52.7 % (35.5-45.6) H 04/30/18 10:39 MCV 95 fl (84-94) H 04/28/18 06:21 MCH 31 pg (28-32) 04/28/18 06:21 MCHC 32 % (32-34) 04/28/18 06:21 RDW 14.0 % (13.2-15.2) 04/28/18 06:21 Plt Count 189 K/mm3 (140-440) 04/30/18 10:39 Lymph % (Auto) 22.2 % (13.4-35.0) 04/28/18 06:21 [place] % (Auto) 10.2 % (0.0-7.3) H 04/28/18 06:21 Eos % (Auto) 4.6 % (0.0-4.3) H 04/28/18 06:21 Baso % (Auto) 0.6 % (0.0-1.8) 04/28/18 06:21 Lymph # 1.2 K/mm3 (1.2-5.4) 04/28/18 06:21 [place] # 0.6 K/mm3 (0.0-0.8) 04/28/18 06:21 Eos # 0.3 K/mm3 (0.0-0.4) 04/28/18 06:21 Baso # 0.0 K/mm3 (0.0-0.1) 04/28/18 06:21 Seg Neutrophils % 62.4 % (40.0-70.0) 04/28/18 06:21 Seg Neutrophils # 3.5 K/mm3 (1.8-7.7) 04/28/18 06:21 PT 13.3 Sec. (12.2-14.9) 04/30/18 10:34 INR 0.96 (0.87-1.13) 04/30/18 10:34 APTT 28.6 Sec. (24.2-36.6) 04/30/18 10:34 D-Dimer 651.6 ng/mlDDU (0-234) H 04/24/18 17:39 Heparin Anti-Xa Level 1.50 U.I./ml (0.3-0.7) H 05/01/18 03:31 POC ABG pH 7.432 (7.35-7.45) 04/30/18 10:58 POC ABG pCO2 69.8 (35-45) H 04/30/18 10:58 POC ABG pO2 43 (80-105) L 04/30/18 10:58 POC ABG HCO3 46.5 04/30/18 10:58 POC ABG Total CO2 49 04/30/18 10:58 POC ABG O2 Sat 77 04/30/18 10:58 POC ABG Base Excess 22 04/30/18 10:58 FiO2 21 % 04/30/18 10:58 Sodium 141 mmol/L (137-145) 04/29/18 06:18 Potassium 3.9 mmol/L (3.6-5.0) 04/29/18 06:18 Chloride 93.6 mmol/L (98-107) L 04/29/18 06:18 Carbon Dioxide 38 mmol/L (22-30) H 04/29/18 06:18 Anion Gap 13 mmol/L 04/29/18 06:18 BUN 15 mg/dL (9-20) 04/29/18 06:18 Creatinine 0.9 mg/dL (0.8-1.5) 04/29/18 06:18 Estimated GFR > 60 ml/min 04/29/18 06:18 BUN/Creatinine Ratio 17 % 04/29/18 06:18 Glucose 115 mg/dL (75-100) H 04/29/18 06:18 POC Glucose 83 (70-105) 04/24/18 20:29 Calcium 8.2 mg/dL (8.4-10.2) L 04/29/18 06:18 Phosphorus 5.00 mg/dL (2.5-4.5) H 04/25/18 05:22 Magnesium 1.80 mg/dL (1.7-2.3) 04/26/18 07:09 Total Bilirubin 0.90 mg/dL (0.1-1.2) 04/29/18 06:18 Direct Bilirubin 0.4 mg/dL (0-0.2) H 04/24/18 14:38 Indirect Bilirubin 0.6 mg/dL 04/24/18 14:38 AST 22 units/L (5-40) 04/29/18 06:18 ALT 20 units/L (7-56) 04/29/18 06:18 Alkaline Phosphatase 82 units/L (35-129) 04/29/18 06:18 Total Creatine Kinase 88 units/L (55-170) 04/24/18 20:35 CK-MB (CK-2) 2.1 ng/mL (0.0-4.0) 04/24/18 20:35 CK-MB (CK-2) Rel Index 2.3 (0-4) 04/24/18 20:35 Troponin T < 0.010 ng/mL (0.00-0.029) 04/24/18 20:35 NT-Pro-B Natriuret Pep 1235 pg/mL (0-900) H 04/24/18 15:44 Serum Total Protein 7.5 g/dL (6.1-8.1) 04/25/18 05:22 Total Protein 7.5 g/dL (6.3-8.2) 04/29/18 06:18 Albumin 3.4 g/dL (3.9-5) L 04/29/18 06:18 Albumin/Globulin Ratio 0.8 % 04/29/18 06:18 Ncyoa-8-Mpnzejkfn 0.3 g/dL (0.2-0.3) 04/25/18 05:22 Jijwr-4-Gjbrkznwy 0.8 g/dL (0.5-0.9) 04/25/18 05:22 Beta Globulins 0.5 g/dL (0.2-0.5) 04/25/18 05:22 Gamma Globulins 1.9 g/dL (0.8-1.7) H 04/25/18 05:22 Abnorm Protein Band 1 see below 04/25/18 05:22 PEP Interpretation see below H 04/25/18 05:22 Lipase 44 units/L (13-60) 04/24/18 14:38 Urine Color [place]ilda (Yellow) 04/24/18 13:05 Urine Turbidity Clear (Clear) 04/24/18 13:05 Urine pH 5.0 (5.0-7.0) 04/24/18 13:05 Ur Specific [place] 1.019 (1.003-1.030) 04/24/18 13:05 Urine Protein 100 mg/dl mg/dL (Negative) 04/24/18 13:05 Urine Glucose (UA) Neg mg/dL (Negative) 04/24/18 13:05 Urine Ketones Neg mg/dL (Negative) 04/24/18 13:05 Urine Blood Neg (Negative) 04/24/18 13:05 Urine Nitrite Neg (Negative) 04/24/18 13:05 Urine Bilirubin Neg (Negative) 04/24/18 13:05 Urine Urobilinogen 4.0 mg/dL (<2.0) 04/24/18 13:05 Ur Leukocyte Esterase Neg (Negative) 04/24/18 13:05 Urine WBC (Auto) 2.0 /HPF (0.0-6.0) 04/24/18 13:05 Urine RBC (Auto) < 1.0 /HPF (0.0-6.0) 04/24/18 13:05 Hyaline Casts 1 /LPF 04/24/18 13:05 Urine Mucus Few /HPF 04/24/18 13:05 Urine Total Volume 1500 04/25/18 11:00 Urine Creatinine 119.9 mg/dL (0.1-20.0) H 04/25/18 12:00 Ur Total Protein 24 Hr 165.00 (2-200) 04/25/18 11:00 Protein/Creatinin Ratio 0.14 04/25/18 12:00 Urine Total Protein 17 mg/dL (5-11.8) H 04/25/18 12:00 ALEJA Screen Negative (Negative) 04/25/18 05:22 Complement C3 154 mg/dL (82-185) 04/25/18 05:22 Complement C4 22 mg/dL (15-53) 04/25/18 05:22 Hepatitis A IgM Ab Non-reactive (NonReactive) 04/24/18 17:39 Hep Bs Antigen Non-reactive (Negative) 04/24/18 17:39 Hep B Core IgM Ab Non-reactive (NonReactive) 04/24/18 17:39 Hepatitis C Antibody Non-reactive (NonReactive) 04/24/18 17:39
[2018-05-01] MEDS: CORDARONE PO SCH ×4 (11:07→21:32)
--- NOTE | 2018-05-01 13:42 | Progress Note ---
Assessment and Plan Acute hypoxemic respiratory failure, on supplemental oxygen. Acute congestive heart failure exacerbation/new onset congestive heart failure. A 2D echo reports an ejection fraction of 35-40%. Atrial Fibrillation with RVR Mild pulmonary hypertension. Morbid obesity. Likely sleep disordered breathing. Hyperphosphatemia - not enough fluid for thoracentesis - continue diuresis - complete cardiology evaluation - continue supplemental oxygen as needed to keep sats > 90% - continue GI & VTE prophylaxis - bronchodilators - continue other care per attending / other consultants .... 25' Subjective Date of service: 05/01/18 Principal diagnosis: Acute Hypoxemic Resp Failure; Acut CHF exacerbation; Right Pleural Effusion Interval history: Patient is seen today for: Acute Hypoxemic Resp Failure; Acut CHF exacerbation; Right Pleural Effusion Seen and examined at bedside; 24hour events reviewed; nursing and respiratory care staff consulted; no adverse overnight events reported to me; remains in A- fib with RVR; s/p unsuccessful cardioversion Objective Vital Signs - 12hr 05/01/18 05/01/18 05/01/18 05:21 08:07 08:32 Temperature 98.2 F 97.8 F Pulse Rate 105 H 124 H 120 H Respiratory 20 18 Rate Blood Pressure 113/81 101/78 101/78 O2 Sat by Pulse 92 98 Oximetry 05/01/18 05/01/18 05/01/18 08:42 10:00 10:53 Temperature Pulse Rate 116 H 121 H Respiratory 20 Rate Blood Pressure 113/76 O2 Sat by Pulse 92 93 Oximetry 05/01/18 05/01/18 05/01/18 11:00 11:37 11:54 Temperature 97.8 F Pulse Rate 128 H 131 H Respiratory 18 Rate Blood Pressure 113/76 109/57 O2 Sat by Pulse 93 97 Oximetry Constitutional: appears uncomfortable, other (morbidly obese middle aged male in mild respiratory distress) Eyes: non-icteric ENT: oropharynx moist, other (mallampati 3) Neck: supple, no lymphadenopathy, no JVD, other (large neck circumference) Effort: mildly labored Ascultation: Bilateral: diminished breath sounds, wheezes (Mild wheezing upper airways.), rhonchi (base) Percussion: Bilateral: not dull Cardiovascular: irregular rhythm, other (No R/M) Gastrointestinal: normoactive bowel sounds, soft, non-tender, non-distended Integumentary: normal Extremities: no cyanosis, pink and warm, pulses normal, edema Neurologic: normal mental status, non-focal exam, pupils equal and round, motor strength normal and Psychiatric: mood appropriate, anxious CBC and BMP: 04/30/18 10:39 04/29/18 06:18 ABG, PT/INR, D-dimer: ABG POC ABG pH 7.432 (7.35-7.45) 04/30/18 10:58 POC ABG pCO2 69.8 (35-45) H 04/30/18 10:58 POC ABG pO2 43 (80-105) L 04/30/18 10:58 POC ABG HCO3 46.5 04/30/18 10:58 POC ABG Total CO2 49 04/30/18 10:58 POC ABG O2 Sat 77 04/30/18 10:58 PT/INR, D-dimer PT 13.3 Sec. (12.2-14.9) 04/30/18 10:34 INR 0.96 (0.87-1.13) 04/30/18 10:34 D-Dimer 651.6 ng/mlDDU (0-234) H 04/24/18 17:39 Abnormal lab findings: Abnormal Labs 04/24/18 04/24/18 04/24/18 14:38 14:38 14:38 RBC 5.48 H Hgb 16.7 H Hct 51.6 H MCV [place] % (Auto) 10.3 H Eos % (Auto) D-Dimer Heparin Anti-Xa Level POC ABG pCO2 POC ABG pO2 Chloride Carbon Dioxide 31 H Glucose 111 H Calcium Phosphorus Direct Bilirubin 0.4 H NT-Pro-B Natriuret Pep Albumin 3.4 L 3.4 L Gamma Globulins PEP Interpretation Urine Creatinine Urine Total Protein 04/24/18 04/24/18 04/25/18 15:44 17:39 05:22 RBC Hgb Hct MCV [place] % (Auto) Eos % (Auto) D-Dimer 651.6 H Heparin Anti-Xa Level POC ABG pCO2 POC ABG pO2 Chloride 97.0 L Carbon Dioxide 31 H Glucose 101 H Calcium Phosphorus 5.00 H Direct Bilirubin NT-Pro-B Natriuret Pep 1235 H Albumin Gamma Globulins PEP Interpretation Urine Creatinine Urine Total Protein 04/25/18 04/25/18 04/26/18 05:22 12:00 07:09 RBC 5.38 H Hgb 16.9 H Hct 51.5 H MCV 96 H [place] % (Auto) 9.3 H Eos % (Auto) 4.9 H D-Dimer Heparin Anti-Xa Level POC ABG pCO2 POC ABG pO2 Chloride Carbon Dioxide Glucose Calcium Phosphorus Direct Bilirubin NT-Pro-B Natriuret Pep Albumin 3.5 L Gamma Globulins 1.9 H PEP Interpretation see below H Urine Creatinine 119.9 H Urine Total Protein 17 H 04/26/18 04/27/18 04/27/18 07:09 06:49 06:49 RBC 5.43 H Hgb 16.6 H Hct 51.6 H MCV 95 H [place] % (Auto) 11.0 H Eos % (Auto) 5.6 H D-Dimer Heparin Anti-Xa Level POC ABG pCO2 POC ABG pO2 Chloride 97.6 L 95.4 L Carbon Dioxide 36 H 36 H Glucose 127 H 110 H Calcium Phosphorus Direct Bilirubin NT-Pro-B Natriuret Pep Albumin 3.3 L 3.5 L Gamma Globulins PEP Interpretation Urine Creatinine Urine Total Protein 04/28/18 04/28/18 04/29/18 06:21 06:21 06:18 RBC 5.37 H Hgb 16.4 H Hct 51.1 H MCV 95 H [place] % (Auto) 10.2 H Eos % (Auto) 4.6 H D-Dimer Heparin Anti-Xa Level POC ABG pCO2 POC ABG pO2 Chloride 95.3 L 93.6 L Carbon Dioxide 34 H 38 H Glucose 111 H 115 H Calcium 8.2 L Phosphorus Direct Bilirubin NT-Pro-B Natriuret Pep Albumin 3.4 L 3.4 L Gamma Globulins PEP Interpretation Urine Creatinine Urine Total Protein 04/30/18 04/30/18 05/01/18 10:39 10:58 03:31 RBC Hgb 17.0 H Hct 52.7 H MCV [place] % (Auto) Eos % (Auto) D-Dimer Heparin Anti-Xa Level 1.50 H POC ABG pCO2 69.8 H POC ABG pO2 43 L Chloride Carbon Dioxide Glucose Calcium Phosphorus Direct Bilirubin NT-Pro-B Natriuret Pep Albumin Gamma Globulins PEP Interpretation Urine Creatinine Urine Total Protein Allied health notes reviewed: nursing
--- NOTE | 2018-05-01 14:02 | Progress Note ---
Assessment and Plan On PO amiodarone. HR is still fast 130/Mt.BP stable.Will restart him on IV amiodarone 0.5 mg/mt infusion. - Patient Problems (1) History of cardioversion Current Visit: Yes Status: Acute (2) Anasarca Current Visit: Yes Status: Acute (3) Atrial fibrillation with RVR Current Visit: Yes Status: Acute (4) Cardiomyopathy Current Visit: Yes Status: Chronic (5) Heart failure with reduced ejection fraction Current Visit: Yes Status: Chronic Qualifiers: Heart failure chronicity: acute Qualified Code(s): I50.21 - Acute systolic (congestive) heart failure (6) Morbid obesity with BMI of 45.0-49.9, adult Current Visit: Yes Status: Chronic (7) Nephrotic syndrome Current Visit: Yes Status: Acute (8) Pulmonary edema Current Visit: Yes Status: Acute Subjective Date of service: 05/01/18 Principal diagnosis: Acute Hypoxemic Resp Failure; Acut CHF exacerbation; Right Pleural Effusion Objective Vital Signs Temp Temp Pulse Pulse Pulse Resp Resp 05/01/18 11:54 97.8 F 131 H 18 05/01/18 11:37 05/01/18 11:00 128 H 05/01/18 10:53 121 H 05/01/18 10:00 116 H 05/01/18 08:42 20 05/01/18 08:32 120 H 05/01/18 08:07 97.8 F 124 H 18 05/01/18 05:21 98.2 F 105 H 20 05/01/18 00:04 97.9 F 109 H 20 04/30/18 23:25 113 H 04/30/18 22:00 04/30/18 20:57 20 04/30/18 19:35 98.2 F 102 H 22 04/30/18 18:36 98.6 F 109 H 20 04/30/18 18:00 104 H 15 04/30/18 17:45 96 H 14 04/30/18 17:30 116 H 24 04/30/18 17:15 97.8 F 88 26 H 04/30/18 17:07 126 H 04/30/18 16:25 137 H Resp BP BP BP Pulse Ox Pulse Ox Pulse Ox 05/01/18 11:54 109/57 97 05/01/18 11:37 93 05/01/18 11:00 113/76 05/01/18 10:53 113/76 93 05/01/18 10:00 05/01/18 08:42 92 05/01/18 08:32 101/78 05/01/18 08:07 101/78 98 05/01/18 05:21 113/81 92 05/01/18 00:04 116/74 92 04/30/18 23:25 04/30/18 22:00 92 04/30/18 20:57 04/30/18 19:35 114/78 87 04/30/18 18:36 110/74 91 04/30/18 18:00 106/74 94 04/30/18 17:45 115/64 98 04/30/18 17:30 114/82 99 04/30/18 17:15 116/77 89 04/30/18 17:07 110/51 04/30/18 16:25 26 H 158/68 94 - Physical Examination General: No Apparent Distress HEENT: Positive: EOMI, Normocephaly, Mucus Membranes Moist Neck: Positive: neck supple, trachea midline Cardiac: Positive: irregularly irregular, Tachycardia Lungs: Positive: clear to auscultation, Normal Breath Sounds Neuro: Positive: Grossly Intact Abdomen: Positive: Soft, Active Bowel Sounds. Negative: Tender Skin: Positive: Clear. Negative: Rash Musculoskeletal: Normal Range of Motion Extremities: Absent: edema - Imaging and Cardiology EKG: report reviewed, image reviewed Echo: report reviewed (EF 35-40%, mild LVH, mod to severe dilatation of the lA, trace to mild MR and TR.) - Telemetry EKG Rhythm: Atrial Fibrillation - EKG Supraventricular dysrhythmia: atrial fibrillation - Allied health notes Allied health notes reviewed: nursing
[2018-05-01] MEDS: CORDARONE 900 MG in D5W 482 ML IV SCH (17:03)
[2018-05-02] MEDS: LASIX IV SCH ×2 (06:35→19:00)
[2018-05-02 07:53] LABS: Hematocrit 51.8 % (35.5-45.6)
--- NOTE | 2018-05-02 08:47 | Progress Note ---
Assessment and Plan Assessment and plan: 53 YO Male with morbid Obesity admitted through emergency room with acute on chronic systolic congestive heart failure , and A. fib with rapid ventricular rate patient was seen by cardiology, amiodarone drip later changed to oral continues to have persistent A. fib RVR,s/p SANDRA cardioversion ,no improvement, today patient remains A. fib with RVR --Persistent A. fib with rapid ventricular rate; status post SANDRA cardioversion, no change Amiodarone changed to IV by cardiology continue beta blockers, Eliquis, for anticoagulation persistent A. fib with rapid ventricular rate cardiology following --Acute systolic congestive heart failure; ejection fraction 35-40% input output monitoring, Diuretics ,beta blockers and TERENCE inhibitor --Mild proteinuria/anasarca; Nephrology following, feels symptoms are secondary to congestive heart failure Advised outpatient renal workup upon discharge --Mild pleural effusion; pulmonary evaluation appreciated Symptoms probably secondary to congestive heart failure, recommend to continue diuresis --DVT prophylaxis; heparin --Morbid obesity; BMI 47.7, counseling weight reduction when medically stable Increase ambulation Possible discharge home in 1-2 days if stable History Interval history: Patient seen and examined medical records reviewed Persistent A. fib with RVR, last 24 hours patient's heart rate ranged between 91 - 140s On Amiodarone drip and beta blockers Patient denies chest pain or shortness of breath Alert awake oriented Vital signs reviewed Hospitalist Physical - Constitutional Vitals: Temp Pulse Resp BP Pulse Ox 98.0 F 121 H 22 115/84 90 05/02/18 05:13 05/02/18 05:13 05/02/18 05:13 05/02/18 05:13 05/02/18 05:13 General appearance: Present: no acute distress, well-nourished, obese (morbidly obese) - EENT Eyes: Present: PERRL, EOM intact - Neck Neck: Present: supple, normal ROM - Respiratory Respiratory effort: normal Respiratory: bilateral: diminished, negative: rales, rhonchi, wheezing - Cardiovascular Rhythm: irregularly irregular (RVR) Heart Sounds: Present: S1 & S2 - Extremities Extremities: no ischemia Extremity abnormal: edema - Abdominal General gastrointestinal: soft, non-tender, non-distended, normal bowel sounds - Integumentary Integumentary: Present: clear, warm - Psychiatric Psychiatric: appropriate mood/affect, cooperative - Neurologic Neurologic: CNII-XII intact, moves all extremities Results - Labs CBC & Chem 7: 05/02/18 06:58 04/29/18 06:18 Labs: Laboratory Last Values WBC 5.6 K/mm3 (4.5-11.0) 04/28/18 06:21 RBC 5.37 M/mm3 (3.65-5.03) H 04/28/18 06:21 Hgb 17.0 gm/dl (11.8-15.2) H 05/02/18 06:58 Hct 51.8 % (35.5-45.6) H 05/02/18 06:58 MCV 95 fl (84-94) H 04/28/18 06:21 MCH 31 pg (28-32) 04/28/18 06:21 MCHC 32 % (32-34) 04/28/18 06:21 RDW 14.0 % (13.2-15.2) 04/28/18 06:21 Plt Count 177 K/mm3 (140-440) 05/02/18 06:58 Lymph % (Auto) 22.2 % (13.4-35.0) 04/28/18 06:21 [place] % (Auto) 10.2 % (0.0-7.3) H 04/28/18 06:21 Eos % (Auto) 4.6 % (0.0-4.3) H 04/28/18 06:21 Baso % (Auto) 0.6 % (0.0-1.8) 04/28/18 06:21 Lymph # 1.2 K/mm3 (1.2-5.4) 04/28/18 06:21 [place] # 0.6 K/mm3 (0.0-0.8) 04/28/18 06:21 Eos # 0.3 K/mm3 (0.0-0.4) 04/28/18 06:21 Baso # 0.0 K/mm3 (0.0-0.1) 04/28/18 06:21 Seg Neutrophils % 62.4 % (40.0-70.0) 04/28/18 06:21 Seg Neutrophils # 3.5 K/mm3 (1.8-7.7) 04/28/18 06:21 PT 13.3 Sec. (12.2-14.9) 04/30/18 10:34 INR 0.96 (0.87-1.13) 04/30/18 10:34 APTT 28.6 Sec. (24.2-36.6) 04/30/18 10:34 D-Dimer 651.6 ng/mlDDU (0-234) H 04/24/18 17:39 Heparin Anti-Xa Level 2.00 U.I./ml (0.3-0.7) H 05/01/18 14:11 POC ABG pH 7.432 (7.35-7.45) 04/30/18 10:58 POC ABG pCO2 69.8 (35-45) H 04/30/18 10:58 POC ABG pO2 43 (80-105) L 04/30/18 10:58 POC ABG HCO3 46.5 04/30/18 10:58 POC ABG Total CO2 49 04/30/18 10:58 POC ABG O2 Sat 77 04/30/18 10:58 POC ABG Base Excess 22 04/30/18 10:58 FiO2 21 % 04/30/18 10:58 Sodium 141 mmol/L (137-145) 04/29/18 06:18 Potassium 3.9 mmol/L (3.6-5.0) 04/29/18 06:18 Chloride 93.6 mmol/L (98-107) L 04/29/18 06:18 Carbon Dioxide 38 mmol/L (22-30) H 04/29/18 06:18 Anion Gap 13 mmol/L 04/29/18 06:18 BUN 15 mg/dL (9-20) 04/29/18 06:18 Creatinine 0.9 mg/dL (0.8-1.5) 04/29/18 06:18 Estimated GFR > 60 ml/min 04/29/18 06:18 BUN/Creatinine Ratio 17 % 04/29/18 06:18 Glucose 115 mg/dL (75-100) H 04/29/18 06:18 POC Glucose 83 (70-105) 04/24/18 20:29 Calcium 8.2 mg/dL (8.4-10.2) L 04/29/18 06:18 Phosphorus 5.00 mg/dL (2.5-4.5) H 04/25/18 05:22 Magnesium 1.80 mg/dL (1.7-2.3) 04/26/18 07:09 Total Bilirubin 0.90 mg/dL (0.1-1.2) 04/29/18 06:18 Direct Bilirubin 0.4 mg/dL (0-0.2) H 04/24/18 14:38 Indirect Bilirubin 0.6 mg/dL 04/24/18 14:38 AST 22 units/L (5-40) 04/29/18 06:18 ALT 20 units/L (7-56) 04/29/18 06:18 Alkaline Phosphatase 82 units/L (35-129) 04/29/18 06:18 Total Creatine Kinase 88 units/L (55-170) 04/24/18 20:35 CK-MB (CK-2) 2.1 ng/mL (0.0-4.0) 04/24/18 20:35 CK-MB (CK-2) Rel Index 2.3 (0-4) 04/24/18 20:35 Troponin T < 0.010 ng/mL (0.00-0.029) 04/24/18 20:35 NT-Pro-B Natriuret Pep 1235 pg/mL (0-900) H 04/24/18 15:44 Serum Total Protein 7.5 g/dL (6.1-8.1) 04/25/18 05:22 Total Protein 7.5 g/dL (6.3-8.2) 04/29/18 06:18 Albumin 3.4 g/dL (3.9-5) L 04/29/18 06:18 Albumin/Globulin Ratio 0.8 % 04/29/18 06:18 Eesdi-0-Iqqbfqbaj 0.3 g/dL (0.2-0.3) 04/25/18 05:22 Voiql-1-Djlqbbcau 0.8 g/dL (0.5-0.9) 04/25/18 05:22 Beta Globulins 0.5 g/dL (0.2-0.5) 04/25/18 05:22 Gamma Globulins 1.9 g/dL (0.8-1.7) H 04/25/18 05:22 Abnorm Protein Band 1 see below 04/25/18 05:22 PEP Interpretation see below H 04/25/18 05:22 Lipase 44 units/L (13-60) 04/24/18 14:38 Urine Color [place] (Yellow) 04/24/18 13:05 Urine Turbidity Clear (Clear) 04/24/18 13:05 Urine pH 5.0 (5.0-7.0) 04/24/18 13:05 Ur Specific [place] 1.019 (1.003-1.030) 04/24/18 13:05 Urine Protein 100 mg/dl mg/dL (Negative) 04/24/18 13:05 Urine Glucose (UA) Neg mg/dL (Negative) 04/24/18 13:05 Urine Ketones Neg mg/dL (Negative) 04/24/18 13:05 Urine Blood Neg (Negative) 04/24/18 13:05 Urine Nitrite Neg (Negative) 04/24/18 13:05 Urine Bilirubin Neg (Negative) 04/24/18 13:05 Urine Urobilinogen 4.0 mg/dL (<2.0) 04/24/18 13:05 Ur Leukocyte Esterase Neg (Negative) 04/24/18 13:05 Urine WBC (Auto) 2.0 /HPF (0.0-6.0) 04/24/18 13:05 Urine RBC (Auto) < 1.0 /HPF (0.0-6.0) 04/24/18 13:05 Hyaline Casts 1 /LPF 04/24/18 13:05 Urine Mucus Few /HPF 04/24/18 13:05 Urine Total Volume 1500 04/25/18 11:00 Urine Creatinine 119.9 mg/dL (0.1-20.0) H 04/25/18 12:00 Ur Total Protein 24 Hr 165.00 (2-200) 04/25/18 11:00 Protein/Creatinin Ratio 0.14 04/25/18 12:00 Urine Total Protein 17 mg/dL (5-11.8) H 04/25/18 12:00 ALEJA Screen Negative (Negative) 04/25/18 05:22 Complement C3 154 mg/dL (82-185) 04/25/18 05:22 Complement C4 22 mg/dL (15-53) 04/25/18 05:22 Hepatitis A IgM Ab Non-reactive (NonReactive) 04/24/18 17:39 Hep Bs Antigen Non-reactive (Negative) 04/24/18 17:39 Hep B Core IgM Ab Non-reactive (NonReactive) 04/24/18 17:39 Hepatitis C Antibody Non-reactive (NonReactive) 04/24/18 17:39
[2018-05-02] MEDS: PEPCID PO SCH (09:12)
[2018-05-02] MEDS: LOPRESSOR PO SCH ×3 (09:12→20:09)
[2018-05-02] MEDS: CORDARONE PO SCH ×4 (09:13→21:43)
[2018-05-02] MEDS: ELIQUIS PO SCH ×2 (09:13→21:43)
[2018-05-02] MEDS: ZESTRIL PO SCH (09:13)
[2018-05-02] MEDS: SODIUM CHLORIDE FLUSH SYRINGE 10 ML IV SCH ×2 (09:14→21:43)
--- NOTE | 2018-05-02 09:45 | Procedure Note ---
ELECTRICAL CARDIOVERSION REASON FOR ELECTRICAL CARDIOVERSION: Rapid atrial fibrillation. DESCRIPTION OF PROCEDURE: Informed consent was first obtained for electrical cardioversion. With the patient in a supine position, electrode pads were applied over the anterior and posterior chest esposito. The patient was then placed on continuous electrocardiographic and hemodynamic monitoring. After adequate sedation by the anesthesiologist, a 200 joule synchronized shock was applied over the electrode pads with prompt conversion to normal sinus rhythm. However, the patient converted back into atrial fibrillation within a few minutes. After administration of intravenous metoprolol, the patient received another 200 joule of synchronized cardioversion with prompt conversion to sinus rhythm again. However, he converted back into atrial fibrillation again within a few minutes. The procedure was then terminated with no obvious complication. JOB# [id number] CAMELIA/EDNA
--- NOTE | 2018-05-02 15:03 | Progress Note ---
Assessment and Plan On PO amiodarone. HR has improved.Will D/C IV amiodarone 0.5 mg/mt infusion. - Patient Problems (1) History of cardioversion Current Visit: Yes Status: Acute (2) Anasarca Current Visit: Yes Status: Acute (3) Atrial fibrillation with RVR Current Visit: Yes Status: Acute (4) Cardiomyopathy Current Visit: Yes Status: Chronic (5) Heart failure with reduced ejection fraction Current Visit: Yes Status: Chronic Qualifiers: Heart failure chronicity: acute Qualified Code(s): I50.21 - Acute systolic (congestive) heart failure (6) Morbid obesity with BMI of 45.0-49.9, adult Current Visit: Yes Status: Chronic (7) Nephrotic syndrome Current Visit: Yes Status: Acute (8) Pulmonary edema Current Visit: Yes Status: Resolved Subjective Date of service: 05/02/18 Principal diagnosis: Acute Hypoxemic Resp Failure; Acut CHF exacerbation; Right Pleural Effusion Interval history: HR better. 90s to low 100s.Feels better.BP stable. Objective Vital Signs Temp Pulse Resp BP BP Pulse Ox 05/02/18 11:49 98.1 F 18 97/59 05/02/18 09:19 98.3 F 113 H 18 115/75 90 05/02/18 07:54 98.3 F 118 H 18 115/75 90 05/02/18 05:13 98.0 F 121 H 22 115/84 90 05/01/18 22:57 98.8 F 91 H 20 111/69 93 05/01/18 22:00 112 H 20 95 05/01/18 21:33 113 H 118/93 05/01/18 19:27 98.1 F 116 H 22 118/93 96 05/01/18 17:13 97.9 F 109 H 20 107/72 96 - Physical Examination General: No Apparent Distress, Other (Morbidly obese) HEENT: Positive: EOMI, Normocephaly, Mucus Membranes Moist Neck: Positive: neck supple, trachea midline Cardiac: Positive: irregularly irregular Lungs: Positive: clear to auscultation, Normal Breath Sounds Neuro: Positive: Grossly Intact Abdomen: Positive: Soft, Active Bowel Sounds. Negative: Tender Skin: Positive: Clear. Negative: Rash Musculoskeletal: Normal Range of Motion Extremities: Absent: edema - Labs and Meds CBC 05/02/18 Range/Units 06:58 Hgb 17.0 H (11.8-15.2) gm/dl Hct 51.8 H (35.5-45.6) % Plt Count 177 (140-440) K/mm3 - Imaging and Cardiology EKG: report reviewed, image reviewed Echo: report reviewed (EF 35-40%, mild LVH, mod to severe dilatation of the lA, trace to mild MR and TR.) - Telemetry EKG Rhythm: Atrial Fibrillation - EKG Supraventricular dysrhythmia: atrial fibrillation - Allied health notes Allied health notes reviewed: nursing
[2018-05-03] MEDS: LASIX IV SCH (06:08)
[2018-05-03] MEDS: LOPRESSOR PO SCH ×2 (08:00→22:08)
[2018-05-03] MEDS: CORDARONE PO SCH ×4 (09:35→22:09)
[2018-05-03] MEDS: PEPCID PO SCH (09:35)
[2018-05-03] MEDS: ELIQUIS PO SCH ×2 (09:35→22:08)
[2018-05-03] MEDS: ZESTRIL PO SCH (10:56)
[2018-05-03] MEDS: SODIUM CHLORIDE FLUSH SYRINGE 10 ML IV SCH ×2 (10:56→22:09)
--- NOTE | 2018-05-03 11:23 | Progress Note ---
Assessment and Plan Pt has converted to NSR. Cont PO amio QID and plan to decrease dosage tomorrow. Cont lopressor and lisinopril. Cont eliquis. Pt is down nearly 12kg. Convert IV lasix to PO lasix 40mg daily. Pt with probable YOLIS. Consider further evaluation per primary. Plan for lexiscan MPI stress test in AM. NPO after MN. Assessment and plan reviewed with pt. The patient has been seen in conjunction with Dr. Shore who agrees with the assessment and plan of care. - Patient Problems (1) Heart failure with reduced ejection fraction Current Visit: Yes Status: Chronic Qualifiers: Heart failure chronicity: acute Qualified Code(s): I50.21 - Acute systolic (congestive) heart failure (2) Cardiomyopathy Current Visit: Yes Status: Chronic (3) Atrial fibrillation with RVR Current Visit: Yes Status: Resolved (4) Proteinuria Current Visit: Yes Status: Acute (5) History of cardioversion Current Visit: Yes Status: Chronic (6) Morbid obesity with BMI of 45.0-49.9, adult Current Visit: Yes Status: Chronic (7) YOLIS (obstructive sleep apnea) Current Visit: Yes Status: Suspected Subjective Date of service: 05/03/18 Principal diagnosis: Acute Hypoxemic Resp Failure; Acut CHF exacerbation; Right Pleural Effusion Interval history: pt resting comfortably in bed, no current cardiac complaints. tele reviewed - pt converted to SR overnight and remains in NSR. BPs WNL. Objective Last Vital Signs Temp 98.2 F 05/03/18 07:27 Pulse 71 05/03/18 10:56 Resp 20 05/03/18 10:00 BP 104/77 05/03/18 10:56 Pulse Ox 92 05/03/18 10:00 - Physical Examination General: No Apparent Distress, Other (Morbidly obese) HEENT: Positive: EOMI, Normocephaly, Mucus Membranes Moist Neck: Positive: neck supple, trachea midline Cardiac: Positive: Reg Rate and Rhythm, S1/S2 Lungs: Positive: clear to auscultation Neuro: Positive: Grossly Intact Abdomen: Positive: Soft, Active Bowel Sounds. Negative: Tender Skin: Positive: Clear. Negative: Rash Musculoskeletal: Normal Range of Motion Extremities: Absent: edema - Imaging and Cardiology EKG: report reviewed, image reviewed Echo: report reviewed (EF 35-40%, mild LVH, mod to severe dilatation of the lA, trace to mild MR and TR.) - Telemetry EKG Rhythm: Sinus Rhythm - Allied health notes Allied health notes reviewed: nursing
--- NOTE | 2018-05-03 13:29 | Progress Note ---
Assessment and Plan Acute hypoxemic respiratory failure, on supplemental oxygen. Acute congestive heart failure exacerbation/new onset congestive heart failure. A 2D echo reports an ejection fraction of 35-40%. Atrial Fibrillation with RVR Mild pulmonary hypertension. Morbid obesity. Likely sleep disordered breathing. Hyperphosphatemia - not enough fluid for thoracentesis - continue diuresis - complete cardiology evaluation - continue supplemental oxygen as needed to keep sats > 90% - continue GI & VTE prophylaxis - bronchodilators - continue other care per attending / other consultants .... 25' Subjective Date of service: 05/03/18 Principal diagnosis: Acute Hypoxemic Resp Failure; Acut CHF exacerbation; Right Pleural Effusion Interval history: Patient is seen today for: Acute Hypoxemic Resp Failure; Acut CHF exacerbation; Right Pleural Effusion Seen and examined at bedside; 24hour events reviewed; nursing and respiratory care staff consulted; no adverse overnight events reported to me; Objective Vital Signs - 12hr 05/03/18 05/03/18 05/03/18 04:18 05:24 07:27 Temperature 97.6 F 98.2 F Pulse Rate 68 88 71 Pulse Rate [ From Monitor] Respiratory 20 20 Rate Blood Pressure 103/65 104/77 Blood Pressure 103/64 [Right] O2 Sat by Pulse 94 94 92 Oximetry 05/03/18 05/03/18 05/03/18 08:00 10:00 10:56 Temperature Pulse Rate 71 74 71 Pulse Rate [ 71 From Monitor] Respiratory 20 Rate Blood Pressure 104/77 104/77 Blood Pressure [Right] O2 Sat by Pulse 95 Oximetry 05/03/18 11:33 Temperature 98.2 F Pulse Rate 70 Pulse Rate [ From Monitor] Respiratory 20 Rate Blood Pressure 105/70 Blood Pressure [Right] O2 Sat by Pulse 97 Oximetry Constitutional: appears uncomfortable, other (morbidly obese middle aged male in mild respiratory distress) Eyes: non-icteric ENT: oropharynx moist, other (mallampati 3) Neck: supple, no lymphadenopathy, no JVD, other (large neck circumference) Effort: mildly labored Ascultation: Bilateral: diminished breath sounds, wheezes (Mild wheezing upper airways.), rhonchi (base) Percussion: Bilateral: not dull Cardiovascular: irregular rhythm, other (No R/M) Gastrointestinal: normoactive bowel sounds, soft, non-tender, non-distended Integumentary: normal Extremities: no cyanosis, pink and warm, pulses normal, edema Neurologic: normal mental status, non-focal exam, pupils equal and round, motor strength normal and Psychiatric: mood appropriate, anxious CBC and BMP: 05/02/18 06:58 04/29/18 06:18 ABG, PT/INR, D-dimer: ABG POC ABG pH 7.432 (7.35-7.45) 04/30/18 10:58 POC ABG pCO2 69.8 (35-45) H 04/30/18 10:58 POC ABG pO2 43 (80-105) L 04/30/18 10:58 POC ABG HCO3 46.5 04/30/18 10:58 POC ABG Total CO2 49 04/30/18 10:58 POC ABG O2 Sat 77 04/30/18 10:58 PT/INR, D-dimer PT 13.3 Sec. (12.2-14.9) 04/30/18 10:34 INR 0.96 (0.87-1.13) 04/30/18 10:34 D-Dimer 651.6 ng/mlDDU (0-234) H 04/24/18 17:39 Abnormal lab findings: Abnormal Labs 04/24/18 04/24/18 04/24/18 14:38 14:38 14:38 RBC 5.48 H Hgb 16.7 H Hct 51.6 H MCV [place] % (Auto) 10.3 H Eos % (Auto) D-Dimer Heparin Anti-Xa Level POC ABG pCO2 POC ABG pO2 Chloride Carbon Dioxide 31 H Glucose 111 H Calcium Phosphorus Direct Bilirubin 0.4 H NT-Pro-B Natriuret Pep Albumin 3.4 L 3.4 L Gamma Globulins PEP Interpretation Urine Creatinine Urine Total Protein 04/24/18 04/24/18 04/25/18 15:44 17:39 05:22 RBC Hgb Hct MCV [place] % (Auto) Eos % (Auto) D-Dimer 651.6 H Heparin Anti-Xa Level POC ABG pCO2 POC ABG pO2 Chloride 97.0 L Carbon Dioxide 31 H Glucose 101 H Calcium Phosphorus 5.00 H Direct Bilirubin NT-Pro-B Natriuret Pep 1235 H Albumin Gamma Globulins PEP Interpretation Urine Creatinine Urine Total Protein 04/25/18 04/25/18 04/26/18 05:22 12:00 07:09 RBC 5.38 H Hgb 16.9 H Hct 51.5 H MCV 96 H [place] % (Auto) 9.3 H Eos % (Auto) 4.9 H D-Dimer Heparin Anti-Xa Level POC ABG pCO2 POC ABG pO2 Chloride Carbon Dioxide Glucose Calcium Phosphorus Direct Bilirubin NT-Pro-B Natriuret Pep Albumin 3.5 L Gamma Globulins 1.9 H PEP Interpretation see below H Urine Creatinine 119.9 H Urine Total Protein 17 H 04/26/18 04/27/18 04/27/18 07:09 06:49 06:49 RBC 5.43 H Hgb 16.6 H Hct 51.6 H MCV 95 H [place] % (Auto) 11.0 H Eos % (Auto) 5.6 H D-Dimer Heparin Anti-Xa Level POC ABG pCO2 POC ABG pO2 Chloride 97.6 L 95.4 L Carbon Dioxide 36 H 36 H Glucose 127 H 110 H Calcium Phosphorus Direct Bilirubin NT-Pro-B Natriuret Pep Albumin 3.3 L 3.5 L Gamma Globulins PEP Interpretation Urine Creatinine Urine Total Protein 04/28/18 04/28/18 04/29/18 06:21 06:21 06:18 RBC 5.37 H Hgb 16.4 H Hct 51.1 H MCV 95 H [place] % (Auto) 10.2 H Eos % (Auto) 4.6 H D-Dimer Heparin Anti-Xa Level POC ABG pCO2 POC ABG pO2 Chloride 95.3 L 93.6 L Carbon Dioxide 34 H 38 H Glucose 111 H 115 H Calcium 8.2 L Phosphorus Direct Bilirubin NT-Pro-B Natriuret Pep Albumin 3.4 L 3.4 L Gamma Globulins PEP Interpretation Urine Creatinine Urine Total Protein 04/30/18 04/30/18 05/01/18 10:39 10:58 03:31 RBC Hgb 17.0 H Hct 52.7 H MCV [place] % (Auto) Eos % (Auto) D-Dimer Heparin Anti-Xa Level 1.50 H POC ABG pCO2 69.8 H POC ABG pO2 43 L Chloride Carbon Dioxide Glucose Calcium Phosphorus Direct Bilirubin NT-Pro-B Natriuret Pep Albumin Gamma Globulins PEP Interpretation Urine Creatinine Urine Total Protein 05/01/18 05/02/18 14:11 06:58 RBC Hgb 17.0 H Hct 51.8 H MCV [place] % (Auto) Eos % (Auto) D-Dimer Heparin Anti-Xa Level 2.00 H POC ABG pCO2 POC ABG pO2 Chloride Carbon Dioxide Glucose Calcium Phosphorus Direct Bilirubin NT-Pro-B Natriuret Pep Albumin Gamma Globulins PEP Interpretation Urine Creatinine Urine Total Protein Allied health notes reviewed: nursing
--- NOTE | 2018-05-03 16:48 | Progress Note ---
Assessment and Plan Assessment and plan: 53 YO Male with morbid Obesity admitted through emergency room with acute on chronic systolic congestive heart failure , and A. fib with rapid ventricular rate patient was seen by cardiology, amiodarone drip later changed to oral continues to have persistent A. fib RVR,s/p SANDRA cardioversion ,no improvement, today patient remains A. fib rate controlled On the high dose of amiodarone 400 every 6 hours by mouth --Persistent A. fib with rapid ventricular rate; status post SANDRA cardioversion, no change Amiodarone changed to oral 400 qid by cardiology continue beta blockers, Eliquis , for anticoagulation cardiology following, possible stress test tomorrow --Acute systolic congestive heart failure; ejection fraction 35-40% input output monitoring, Diuretics ,beta blockers and TERENCE inhibitor --Mild proteinuria/anasarca; Nephrology following, feels symptoms are secondary to congestive heart failure Advised outpatient renal workup upon discharge --Mild pleural effusion; pulmonary evaluation appreciated Symptoms probably secondary to congestive heart failure, continue diurese --DVT prophylaxis; heparin --Morbid obesity; BMI 43:7, counseling weight reduction when medically stable Increase ambulation Possible discharge home in 1-2 days if stable History Interval history: Patient seen and examined medical records reviewed Patient continues to have persistent A. fib Did not respond with SANDRA cardioversion Now patient is on very high doses of amiodarone 400 every 6 hours Mild improvement of heart rate. Cardiology planning stress test tomorrow Patient denies chest pain or shortness of breath Vital signs noted Hospitalist Physical - Constitutional Vitals: Temp Pulse Resp BP Pulse Ox 98.2 F 70 20 105/70 97 05/03/18 11:33 05/03/18 11:33 05/03/18 11:33 05/03/18 11:33 05/03/18 11:33 General appearance: Present: no acute distress, well-nourished, obese (morbidly obese) - EENT Eyes: Present: PERRL, EOM intact - Neck Neck: Present: supple, normal ROM - Respiratory Respiratory effort: normal Respiratory: bilateral: diminished, negative: rales, rhonchi, wheezing - Cardiovascular Rhythm: irregularly irregular Heart Sounds: Present: S1 & S2 - Extremities Extremities: no ischemia Extremity abnormal: edema ( trace edema) - Abdominal General gastrointestinal: soft, non-tender, non-distended, normal bowel sounds - Integumentary Integumentary: Present: clear, warm - Psychiatric Psychiatric: appropriate mood/affect, cooperative - Neurologic Neurologic: CNII-XII intact, moves all extremities Results - Labs CBC & Chem 7: 05/02/18 06:58 04/29/18 06:18 Labs: Laboratory Last Values WBC 5.6 K/mm3 (4.5-11.0) 04/28/18 06:21 RBC 5.37 M/mm3 (3.65-5.03) H 04/28/18 06:21 Hgb 17.0 gm/dl (11.8-15.2) H 05/02/18 06:58 Hct 51.8 % (35.5-45.6) H 05/02/18 06:58 MCV 95 fl (84-94) H 04/28/18 06:21 MCH 31 pg (28-32) 04/28/18 06:21 MCHC 32 % (32-34) 04/28/18 06:21 RDW 14.0 % (13.2-15.2) 04/28/18 06:21 Plt Count 177 K/mm3 (140-440) 05/02/18 06:58 Lymph % (Auto) 22.2 % (13.4-35.0) 04/28/18 06:21 [place] % (Auto) 10.2 % (0.0-7.3) H 04/28/18 06:21 Eos % (Auto) 4.6 % (0.0-4.3) H 04/28/18 06:21 Baso % (Auto) 0.6 % (0.0-1.8) 04/28/18 06:21 Lymph # 1.2 K/mm3 (1.2-5.4) 04/28/18 06:21 [place] # 0.6 K/mm3 (0.0-0.8) 04/28/18 06:21 Eos # 0.3 K/mm3 (0.0-0.4) 04/28/18 06:21 Baso # 0.0 K/mm3 (0.0-0.1) 04/28/18 06:21 Seg Neutrophils % 62.4 % (40.0-70.0) 04/28/18 06:21 Seg Neutrophils # 3.5 K/mm3 (1.8-7.7) 04/28/18 06:21 PT 13.3 Sec. (12.2-14.9) 04/30/18 10:34 INR 0.96 (0.87-1.13) 04/30/18 10:34 APTT 28.6 Sec. (24.2-36.6) 04/30/18 10:34 D-Dimer 651.6 ng/mlDDU (0-234) H 04/24/18 17:39 Heparin Anti-Xa Level 2.00 U.I./ml (0.3-0.7) H 05/01/18 14:11 POC ABG pH 7.432 (7.35-7.45) 04/30/18 10:58 POC ABG pCO2 69.8 (35-45) H 04/30/18 10:58 POC ABG pO2 43 (80-105) L 04/30/18 10:58 POC ABG HCO3 46.5 04/30/18 10:58 POC ABG Total CO2 49 04/30/18 10:58 POC ABG O2 Sat 77 04/30/18 10:58 POC ABG Base Excess 22 04/30/18 10:58 FiO2 21 % 04/30/18 10:58 Sodium 141 mmol/L (137-145) 04/29/18 06:18 Potassium 3.9 mmol/L (3.6-5.0) 04/29/18 06:18 Chloride 93.6 mmol/L (98-107) L 04/29/18 06:18 Carbon Dioxide 38 mmol/L (22-30) H 04/29/18 06:18 Anion Gap 13 mmol/L 04/29/18 06:18 BUN 15 mg/dL (9-20) 04/29/18 06:18 Creatinine 0.9 mg/dL (0.8-1.5) 04/29/18 06:18 Estimated GFR > 60 ml/min 04/29/18 06:18 BUN/Creatinine Ratio 17 % 04/29/18 06:18 Glucose 115 mg/dL (75-100) H 04/29/18 06:18 POC Glucose 83 (70-105) 04/24/18 20:29 Calcium 8.2 mg/dL (8.4-10.2) L 04/29/18 06:18 Phosphorus 5.00 mg/dL (2.5-4.5) H 04/25/18 05:22 Magnesium 1.80 mg/dL (1.7-2.3) 04/26/18 07:09 Total Bilirubin 0.90 mg/dL (0.1-1.2) 04/29/18 06:18 Direct Bilirubin 0.4 mg/dL (0-0.2) H 04/24/18 14:38 Indirect Bilirubin 0.6 mg/dL 04/24/18 14:38 AST 22 units/L (5-40) 04/29/18 06:18 ALT 20 units/L (7-56) 04/29/18 06:18 Alkaline Phosphatase 82 units/L (35-129) 04/29/18 06:18 Total Creatine Kinase 88 units/L (55-170) 04/24/18 20:35 CK-MB (CK-2) 2.1 ng/mL (0.0-4.0) 04/24/18 20:35 CK-MB (CK-2) Rel Index 2.3 (0-4) 04/24/18 20:35 Troponin T < 0.010 ng/mL (0.00-0.029) 04/24/18 20:35 NT-Pro-B Natriuret Pep 1235 pg/mL (0-900) H 04/24/18 15:44 Serum Total Protein 7.5 g/dL (6.1-8.1) 04/25/18 05:22 Total Protein 7.5 g/dL (6.3-8.2) 04/29/18 06:18 Albumin 3.4 g/dL (3.9-5) L 04/29/18 06:18 Albumin/Globulin Ratio 0.8 % 04/29/18 06:18 Jtwma-3-Umqlyiynl 0.3 g/dL (0.2-0.3) 04/25/18 05:22 Mynbo-1-Rmdvsclgw 0.8 g/dL (0.5-0.9) 04/25/18 05:22 Beta Globulins 0.5 g/dL (0.2-0.5) 04/25/18 05:22 Gamma Globulins 1.9 g/dL (0.8-1.7) H 04/25/18 05:22 Abnorm Protein Band 1 see below 04/25/18 05:22 PEP Interpretation see below H 04/25/18 05:22 Lipase 44 units/L (13-60) 04/24/18 14:38 Urine Color [place] (Yellow) 04/24/18 13:05 Urine Turbidity Clear (Clear) 04/24/18 13:05 Urine pH 5.0 (5.0-7.0) 04/24/18 13:05 Ur Specific [place] 1.019 (1.003-1.030) 04/24/18 13:05 Urine Protein 100 mg/dl mg/dL (Negative) 04/24/18 13:05 Urine Glucose (UA) Neg mg/dL (Negative) 04/24/18 13:05 Urine Ketones Neg mg/dL (Negative) 04/24/18 13:05 Urine Blood Neg (Negative) 04/24/18 13:05 Urine Nitrite Neg (Negative) 04/24/18 13:05 Urine Bilirubin Neg (Negative) 04/24/18 13:05 Urine Urobilinogen 4.0 mg/dL (<2.0) 04/24/18 13:05 Ur Leukocyte Esterase Neg (Negative) 04/24/18 13:05 Urine WBC (Auto) 2.0 /HPF (0.0-6.0) 04/24/18 13:05 Urine RBC (Auto) < 1.0 /HPF (0.0-6.0) 04/24/18 13:05 Hyaline Casts 1 /LPF 04/24/18 13:05 Urine Mucus Few /HPF 04/24/18 13:05 Urine Total Volume 1500 04/25/18 11:00 Urine Creatinine 119.9 mg/dL (0.1-20.0) H 04/25/18 12:00 Ur Total Protein 24 Hr 165.00 (2-200) 04/25/18 11:00 Protein/Creatinin Ratio 0.14 04/25/18 12:00 Urine Total Protein 17 mg/dL (5-11.8) H 04/25/18 12:00 ALEJA Screen Negative (Negative) 04/25/18 05:22 Complement C3 154 mg/dL (82-185) 04/25/18 05:22 Complement C4 22 mg/dL (15-53) 04/25/18 05:22 Hepatitis A IgM Ab Non-reactive (NonReactive) 04/24/18 17:39 Hep Bs Antigen Non-reactive (Negative) 04/24/18 17:39 Hep B Core IgM Ab Non-reactive (NonReactive) 04/24/18 17:39 Hepatitis C Antibody Non-reactive (NonReactive) 04/24/18 17:39
[2018-05-03] MEDS ORDERED: CORDARONE PO SCH (22:00)
[2018-05-04 05:52] LABS: BUN/Creatinine Ratio 14; Blood Urea Nitrogen 13 mg/dL (9-20); Calcium 9.3 mg/dL (8.4-10.2); Hemolysis Index 20
[2018-05-04] MEDS ORDERED: LASIX PO SCH (06:00)
[2018-05-04] MEDS ORDERED: LIDOCAINE VISCOUS 2% ONE (08:57)
[2018-05-04] MEDS ORDERED: LEXISCAN IV ONE ×2 (09:32→09:36)
--- NOTE | 2018-05-04 09:39 | Progress Note ---
History Interval history: Patient with A. fib with rapid ventricular rate, now rate controlled On amiodarone 400 every 6 hours, scheduled for stress test today Hospitalist Physical - Constitutional Vitals: Temp Pulse Resp BP Pulse Ox 97.7 F 72 20 111/61 96 05/04/18 08:00 05/04/18 08:00 05/04/18 08:00 05/04/18 08:00 05/04/18 08:00 General appearance: Present: no acute distress, well-nourished, obese (morbidly obese) Results - Labs CBC & Chem 7: 05/02/18 06:58 05/04/18 04:50 Labs: Laboratory Last Values WBC 5.6 K/mm3 (4.5-11.0) 04/28/18 06:21 RBC 5.37 M/mm3 (3.65-5.03) H 04/28/18 06:21 Hgb 17.0 gm/dl (11.8-15.2) H 05/02/18 06:58 Hct 51.8 % (35.5-45.6) H 05/02/18 06:58 MCV 95 fl (84-94) H 04/28/18 06:21 MCH 31 pg (28-32) 04/28/18 06:21 MCHC 32 % (32-34) 04/28/18 06:21 RDW 14.0 % (13.2-15.2) 04/28/18 06:21 Plt Count 177 K/mm3 (140-440) 05/02/18 06:58 Lymph % (Auto) 22.2 % (13.4-35.0) 04/28/18 06:21 [place] % (Auto) 10.2 % (0.0-7.3) H 04/28/18 06:21 Eos % (Auto) 4.6 % (0.0-4.3) H 04/28/18 06:21 Baso % (Auto) 0.6 % (0.0-1.8) 04/28/18 06:21 Lymph # 1.2 K/mm3 (1.2-5.4) 04/28/18 06:21 [place] # 0.6 K/mm3 (0.0-0.8) 04/28/18 06:21 Eos # 0.3 K/mm3 (0.0-0.4) 04/28/18 06:21 Baso # 0.0 K/mm3 (0.0-0.1) 04/28/18 06:21 Seg Neutrophils % 62.4 % (40.0-70.0) 04/28/18 06:21 Seg Neutrophils # 3.5 K/mm3 (1.8-7.7) 04/28/18 06:21 PT 13.3 Sec. (12.2-14.9) 04/30/18 10:34 INR 0.96 (0.87-1.13) 04/30/18 10:34 APTT 28.6 Sec. (24.2-36.6) 04/30/18 10:34 D-Dimer 651.6 ng/mlDDU (0-234) H 04/24/18 17:39 Heparin Anti-Xa Level 2.00 U.I./ml (0.3-0.7) H 05/01/18 14:11 POC ABG pH 7.432 (7.35-7.45) 04/30/18 10:58 POC ABG pCO2 69.8 (35-45) H 04/30/18 10:58 POC ABG pO2 43 (80-105) L 04/30/18 10:58 POC ABG HCO3 46.5 04/30/18 10:58 POC ABG Total CO2 49 04/30/18 10:58 POC ABG O2 Sat 77 04/30/18 10:58 POC ABG Base Excess 22 04/30/18 10:58 FiO2 21 % 04/30/18 10:58 Sodium 137 mmol/L (137-145) 05/04/18 04:50 Potassium 3.6 mmol/L (3.6-5.0) 05/04/18 04:50 Chloride 87.6 mmol/L (98-107) L 05/04/18 04:50 Carbon Dioxide 40 mmol/L (22-30) H 05/04/18 04:50 Anion Gap 13 mmol/L 05/04/18 04:50 BUN 13 mg/dL (9-20) 05/04/18 04:50 Creatinine 0.9 mg/dL (0.8-1.5) 05/04/18 04:50 Estimated GFR > 60 ml/min 05/04/18 04:50 BUN/Creatinine Ratio 14 % 05/04/18 04:50 Glucose 101 mg/dL (75-100) H 05/04/18 04:50 POC Glucose 83 (70-105) 04/24/18 20:29 Calcium 9.3 mg/dL (8.4-10.2) 05/04/18 04:50 Phosphorus 5.00 mg/dL (2.5-4.5) H 04/25/18 05:22 Magnesium 1.80 mg/dL (1.7-2.3) 04/26/18 07:09 Total Bilirubin 0.90 mg/dL (0.1-1.2) 04/29/18 06:18 Direct Bilirubin 0.4 mg/dL (0-0.2) H 04/24/18 14:38 Indirect Bilirubin 0.6 mg/dL 04/24/18 14:38 AST 22 units/L (5-40) 04/29/18 06:18 ALT 20 units/L (7-56) 04/29/18 06:18 Alkaline Phosphatase 82 units/L (35-129) 04/29/18 06:18 Total Creatine Kinase 88 units/L (55-170) 04/24/18 20:35 CK-MB (CK-2) 2.1 ng/mL (0.0-4.0) 04/24/18 20:35 CK-MB (CK-2) Rel Index 2.3 (0-4) 04/24/18 20:35 Troponin T < 0.010 ng/mL (0.00-0.029) 04/24/18 20:35 NT-Pro-B Natriuret Pep 1235 pg/mL (0-900) H 04/24/18 15:44 Serum Total Protein 7.5 g/dL (6.1-8.1) 04/25/18 05:22 Total Protein 7.5 g/dL (6.3-8.2) 04/29/18 06:18 Albumin 3.4 g/dL (3.9-5) L 04/29/18 06:18 Albumin/Globulin Ratio 0.8 % 04/29/18 06:18 Iiqcp-4-Woosfmpxr 0.3 g/dL (0.2-0.3) 04/25/18 05:22 Zphvr-7-Awtpugbbq 0.8 g/dL (0.5-0.9) 04/25/18 05:22 Beta Globulins 0.5 g/dL (0.2-0.5) 04/25/18 05:22 Gamma Globulins 1.9 g/dL (0.8-1.7) H 04/25/18 05:22 Abnorm Protein Band 1 see below 04/25/18 05:22 PEP Interpretation see below H 04/25/18 05:22 Lipase 44 units/L (13-60) 04/24/18 14:38 Urine Color [place] (Yellow) 04/24/18 13:05 Urine Turbidity Clear (Clear) 04/24/18 13:05 Urine pH 5.0 (5.0-7.0) 04/24/18 13:05 Ur Specific [place] 1.019 (1.003-1.030) 04/24/18 13:05 Urine Protein 100 mg/dl mg/dL (Negative) 04/24/18 13:05 Urine Glucose (UA) Neg mg/dL (Negative) 04/24/18 13:05 Urine Ketones Neg mg/dL (Negative) 04/24/18 13:05 Urine Blood Neg (Negative) 04/24/18 13:05 Urine Nitrite Neg (Negative) 04/24/18 13:05 Urine Bilirubin Neg (Negative) 04/24/18 13:05 Urine Urobilinogen 4.0 mg/dL (<2.0) 04/24/18 13:05 Ur Leukocyte Esterase Neg (Negative) 04/24/18 13:05 Urine WBC (Auto) 2.0 /HPF (0.0-6.0) 04/24/18 13:05 Urine RBC (Auto) < 1.0 /HPF (0.0-6.0) 04/24/18 13:05 Hyaline Casts 1 /LPF 04/24/18 13:05 Urine Mucus Few /HPF 04/24/18 13:05 Urine Total Volume 1500 04/25/18 11:00 Urine Creatinine 119.9 mg/dL (0.1-20.0) H 04/25/18 12:00 Ur Total Protein 24 Hr 165.00 (2-200) 04/25/18 11:00 Protein/Creatinin Ratio 0.14 04/25/18 12:00 Urine Total Protein 17 mg/dL (5-11.8) H 04/25/18 12:00 ALEJA Screen Negative (Negative) 04/25/18 05:22 Complement C3 154 mg/dL (82-185) 04/25/18 05:22 Complement C4 22 mg/dL (15-53) 04/25/18 05:22 Hepatitis A IgM Ab Non-reactive (NonReactive) 04/24/18 17:39 Hep Bs Antigen Non-reactive (Negative) 04/24/18 17:39 Hep B Core IgM Ab Non-reactive (NonReactive) 04/24/18 17:39 Hepatitis C Antibody Non-reactive (NonReactive) 04/24/18 17:39
--- NOTE | 2018-05-04 12:11 | Progress Note ---
Assessment and Plan S/p lexiscan MPI stress test this AM which was negative for ischemia, EF 69%. Decrease PO amiodarone to 200mg BID. Cont PO lopressor, lisinopril, lasix, eliquis. Pt with probable YOLIS. Consider further evaluation per primary. Currently stable cardiac status. Pt may discharge home from cardiology standpoint. Follow up in our [place] office with Dr. Shore on 05/06/2018 @ 2:30PM. The patient has been seen in conjunction with Dr. Shore who agrees with the assessment and plan of care. - Patient Problems (1) Heart failure with reduced ejection fraction Current Visit: Yes Status: Chronic Qualifiers: Heart failure chronicity: acute Qualified Code(s): I50.21 - Acute systolic (congestive) heart failure (2) Cardiomyopathy Current Visit: Yes Status: Chronic (3) Atrial fibrillation with RVR Current Visit: Yes Status: Resolved (4) Proteinuria Current Visit: Yes Status: Acute (5) History of cardioversion Current Visit: Yes Status: Chronic (6) Morbid obesity with BMI of 45.0-49.9, adult Current Visit: Yes Status: Chronic (7) YOLIS (obstructive sleep apnea) Current Visit: Yes Status: Suspected Subjective Date of service: 05/04/18 Principal diagnosis: Acute Hypoxemic Resp Failure; Acut CHF exacerbation; Right Pleural Effusion Interval history: pt resting comfortably in bed, no current cardiac complaints. for stress test today. Objective Last Vital Signs Temp 97.7 F 05/04/18 08:00 Pulse 86 05/04/18 09:56 Resp 20 05/04/18 08:00 BP 121/83 05/04/18 09:56 Pulse Ox 96 05/04/18 08:00 - Physical Examination General: No Apparent Distress, Other (Morbidly obese) HEENT: Positive: EOMI, Normocephaly, Mucus Membranes Moist Neck: Positive: neck supple, trachea midline Cardiac: Positive: Reg Rate and Rhythm, S1/S2 Neuro: Positive: Grossly Intact Abdomen: Positive: Soft, Active Bowel Sounds. Negative: Tender Skin: Positive: Clear. Negative: Rash Musculoskeletal: Normal Range of Motion Extremities: Absent: edema - Labs and Meds Comprehensive Metabolic Panel 05/04/18 Range/Units 04:50 Sodium 137 (137-145) mmol/L Potassium 3.6 (3.6-5.0) mmol/L Chloride 87.6 L (98-107) mmol/L Carbon Dioxide 40 H (22-30) mmol/L BUN 13 (9-20) mg/dL Creatinine 0.9 (0.8-1.5) mg/dL Glucose 101 H (75-100) mg/dL Calcium 9.3 (8.4-10.2) mg/dL - Imaging and Cardiology EKG: report reviewed, image reviewed Echo: report reviewed (EF 35-40%, mild LVH, mod to severe dilatation of the lA, trace to mild MR and TR.) - Telemetry EKG Rhythm: Sinus Rhythm - Allied health notes Allied health notes reviewed: nursing
[2018-05-04] MEDS: PEPCID PO SCH (12:39)
[2018-05-04] MEDS: ZESTRIL PO SCH (12:39)
[2018-05-04] MEDS: LOPRESSOR PO SCH (12:39)
[2018-05-04] MEDS: ELIQUIS PO SCH (12:39)
[2018-05-04] MEDS: SODIUM CHLORIDE FLUSH SYRINGE 10 ML IV SCH (12:40)
[2018-05-04] MEDS: CORDARONE PO SCH (12:46)
[2018-05-04] MEDS ORDERED: CORDARONE PO SCH (13:00)
--- NOTE | 2018-05-04 13:53 | Discharge Summary ---
Providers - Providers Date of Admission: 04/24/18 17:23 Date of discharge: 05/04/18 Attending physician: CAROL KU 04/24/18 17:15 Consult to Physician [CONS] Urgent Comment: DR ACOSTA NOTIFIED 1600 Consulting Provider: PAPO ACOSTA Physician Instructions: Reason For Exam: nephrotic syndrome 04/26/18 17:11 Consult to Physician [CONS] Routine Comment: called aservice at 17:32 04/26/18 Consulting Provider: MAVIS MCGEE Physician Instructions: Reason For Exam: right pleual effusion 04/26/18 17:15 Consult to Physician [CONS] Urgent Comment: Consulting Provider: MARINE VILLAFUERTE Physician Instructions: Reason For Exam: Heart failure Primary care physician: RESIDENTIAL SALES REPRESENTATIVE Hospitalization Reason for admission: A. fib with rapid ventricle rate Condition: Stable Pertinent studies: Chest x-ray renal ultrasound CTA chest Echocardiogram SADNRA; cardioversion Chest ultrasound Exercise stress test; negative Hospital course: 53 YO Male with morbid Obesity admitted through emergency room with acute on chronic systolic congestive heart failure , and A. fib with rapid ventricular rate patient was seen by cardiology, amiodarone drip later changed to oral continues to have persistent A. fib RVR,s/p SANDRA cardioversion ,no improvement, today patient remains A. fib rate controlled On the high dose of amiodarone 400 every 6 hours by mouth Patient was symptomatically managed, medications optimized Today's comfortable in bed no new complaints, heart rate well controlled Vital signs reviewed, physical examination at discharge is unremarkable Cleared by cardiology and nephrology for discharge And follow up with them in the office per schedule Patient was hemodynamically and clinically stable at DC Discharge Diagnosis and management; --Persistent A. fib with rapid ventricular rate; status post SANDRA cardioversion, no change Amiodarone changed to oral 400 qid by cardiology, later changed to 200 mg twice a day continue beta blockers, --Chronic anticoagulation Eliquis, --Acute systolic congestive heart failure; EF 35-40%, anti-failure medications --Mild proteinuria/anasarca; follow nephrology --Mild pleural effusion; pulmonary evaluation appreciated --Morbid obesity; BMI 43:7, counseling weight reduction when medically stable Disposition: NV-01 TO HOME OR SELFCARE Time spent for discharge: 33 min Core Measure Documentation - Palliative Care Palliative Care/ Comfort Measures: Not Applicable - Core Measures Any of the following diagnoses?: none Exam - Constitutional Vitals: Temp Pulse Resp BP Pulse Ox 97.9 F 75 20 101/69 94 05/04/18 12:00 05/04/18 12:00 05/04/18 12:00 05/04/18 12:00 05/04/18 12:00 General appearance: Present: no acute distress, obese - EENT Eyes: Present: PERRL, EOM intact - Neck Neck: Present: supple, normal ROM - Respiratory Respiratory effort: normal Respiratory: bilateral: diminished, negative: rales, rhonchi, wheezing - Cardiovascular Rhythm: regular Heart Sounds: Present: S1 & S2 - Extremities Extremities: no ischemia, No edema - Abdominal General gastrointestinal: Present: soft, non-tender, non-distended, normal bowel sounds - Integumentary Integumentary: Present: clear, warm - Musculoskeletal Musculoskeletal: strength equal bilaterally - Psychiatric Psychiatric: appropriate mood/affect, cooperative - Neurologic Neurologic: CNII-XII intact, moves all extremities Plan Activity: advance as tolerated, fall precautions Diet: other (cardiac diet) Special Instructions: smoking cessation Additional Instructions: Exercise as tolerated and weight reduction when medically stable Follow up with: PRIMARY CAREMD [Primary Care Provider] - 3-5 Days [facility]YOLANDA SHORE MD [Staff Physician] - 05/06/18 2:30 am (Follow up in our [place] office with Dr. Shore on 05/06/2018 @ 2:30PM. ) Prescriptions: Amiodarone [Cordarone 200 MG TAB] 200 mg PO BID #60 tablet Apixaban [Eliquis] 5 mg PO Q12HR #60 tablet Furosemide [Lasix TAB] 40 mg PO DAILY@0600 #30 tablet Lisinopril [Zestril TAB] 2.5 mg PO QDAY #30 tablet Metoprolol [Lopressor TAB] 25 mg PO BID #60 tablet Potassium Chloride 10 meq PO QDAY #30 capsule.er
[2018-05-04 17:42] VITALS: BP 120/70
--- NOTE | 2018-05-04 23:51 | Treadmill Report ---
SINGLE ISOTOPE DUAL STUDY MYOCARDIAL PERFUSION SCAN AGE: 53 REFERRING PHYSICIAN: Cathryn Anaya MD, hospitalist. The patient received 10 mCi of technetium 99m Myoview intravenously under resting conditions. Resting myocardial perfusion scan was done. Subsequently, the patient underwent a Lexiscan stress test as per the protocol. During Lexiscan stress, the patient received 28 mCi of technetium 99m Myoview intravenously. After 30-60 minutes, post stress images were done. Computerized reconstruction images were performed for analysis. The post-stress images revealed uniform distribution of the radiopharmaceutical in the left ventricular myocardium. Mild transient ischemic dilatation of the left ventricle was seen with TID ratio of 1.12. The resting images did not reveal any perfusion abnormality. The left ventricular ejection fraction was calculated to be 69%. CONCLUSIONS: 1. Mild transient ischemic dilatation of the left ventricle. This is of uncertain significance, particularly with the absence of perfusion defects with (TID ratio of 1.12). 2. No perfusion abnormality of the left ventricular myocardium was demonstrated in the resting as well as stress images obtained after the patient underwent Lexiscan stress test. 3. No wall motion abnormality. 4. Normal left ventricular ejection fraction of 69%. JOB# [id number] [facility]ITALKeisha
== END 2018-05-04 18:17 | disposition home or self-care (01) | DRG 291 ==
LOC: ED 13:16 → 3A 17:23 → 4A 04-25 21:17
PROVIDERS: ADMIT Internal Medicine; ATTEND Internal Medicine
PROC: 4A033R1 Measurement of Arterial Saturation, Peripheral, Percutaneous Approach (ICD-10-PCS; 2018-04-30)
PROC: 5A2204Z Restoration of Cardiac Rhythm, Single (ICD-10-PCS; principal; 2018-05-01)
DX: I50.43 Acute on chronic combined systolic (congestive) and diastolic (congestive) heart failure (principal); J96.01 Acute respiratory failure with hypoxia; N04.9 Nephrotic syndrome with unspecified morphologic changes; Z68.41 Body mass index [BMI] 40.0-44.9, adult; J90 Pleural effusion, not elsewhere classified; I42.9 Cardiomyopathy, unspecified; I48.91 Unspecified atrial fibrillation; F17.200 Nicotine dependence, unspecified, uncomplicated; I10 Essential (primary) hypertension; E66.01 Morbid (severe) obesity due to excess calories; R80.9 Proteinuria, unspecified; G47.33 Obstructive sleep apnea (adult) (pediatric); I27.20 Pulmonary hypertension, unspecified; E83.39 Other disorders of phosphorus metabolism; N20.0 Calculus of kidney
CPT/HCPCS: 36415; 36600; 71045; 71046; 71275; 76604; 76770; 78452; 80048; 80053; 80074; 81001; 82550; 82553; 82570; 82803; 82962; 83690; 83735; 83880; 84100; 84156; 84165; 84484; 85014; 85018; 85025; 85049; 85379; 85520; 85610; 85730; 86038; 86160; 93005; 93010; 93017; 93306; 93312; 93320; 93325; 94760; 96374; 96375; 96376; 99291; A9502; J0282; J1644; J1940; J2704; J2785; J7040; J7060; Q9967